=== PATIENT | female | born 1965 | race Caucasian/White ===

== ENCOUNTER → 2016-10-05 | Outpatient (CLI) | payer OTHER, BC | END | disposition home or self-care (01) | LOC: GMAB 10:51 | PROVIDERS: ATTEND Family Medicine | DX: N39.0 Urinary tract infection, site not specified (principal) ==

== ENCOUNTER → 2017-05-04 | Outpatient (CLI) | payer OTHER, BC | END | disposition home or self-care (01) | LOC: GMAB 10:41 | PROVIDERS: ATTEND Family Medicine | DX: Z00.01 Encounter for general adult medical examination with abnormal findings (principal) ==

== ENCOUNTER → 2018-09-06 | Outpatient (CLI) | payer OTHER, BC | LOC: LAB.O 18:05 | PROVIDERS: ATTEND Nurse Practitioner Family | DX: I10 Essential (primary) hypertension (principal) ==

== ENCOUNTER 2019-08-01 20:09 | Emergency (ER) | payer OTHER, BC ==
--- NOTE | 2019-08-01 20:44 | ED.PDOC ---
History of Present Illness - General Chief Complaint: Abdominal Pain Stated Complaint: abd cramping x3 hrs Time Seen by Provider: 08/01/19 20:27 Information Source: patient, family Exam Limitations: no limitations - History of Present Illness Initial Comments: 54 yo F with PMH sig for chronic constipation on linzess and bentyl daily who presents for diffuse abd pain described as cramping onset this evening, worsening since, severe, constant, no radiation. Similar pain in past with diverticulitis. Last bowel movement this morning. Denies f/c, cough, congestion, CP, SOB, n/v/d, urinary sx. Review of Systems - Review of Systems Constitutional: Denies: chills, fever EENTM: States: no symptoms reported Respiratory: Denies: cough, short of breath Cardiology: Denies: chest pain, palpitations Gastrointestinal/Abdominal: States: abdominal pain, constipation. Denies: diarrhea, nausea, vomiting Genitourinary: Denies: dysuria, frequency, hematuria Musculoskeletal: Denies: back pain, neck pain Skin: Denies: lesions, rash Neurological: Denies: headache, numbness, weakness Past Medical History (General) - Patient Medical History Hx Seizures: No Hx Stroke: No Hx Dementia: No Hx Asthma: Yes - seasonal: asthma Hx of COPD: No Hx Cardiac Disorders: Yes - mitral valve prolapse Hx Congestive Heart Failure: No Hx Pacemaker: No Hx Hypertension: Yes Hx Thyroid Disease: No Hx Diabetes: No Hx Gastroesophageal Reflux: No Hx Renal Disease: No Hx Cancer: Yes - breast Hx of HIV: No Hx Hepatitis C: No Hx MRSA: No - Vaccination History Hx Tetanus, Diphtheria Vaccination: No Hx Influenza Vaccination: Yes Hx Pneumococcal Vaccination: No - Social History Hx Tobacco Use: No Hx Alcohol Use: No Hx Substance Use: No Hx Substance Use Treatment: No Hx Depression: No Hx Physical Abuse: No Hx Emotional Abuse: No Hx Suspected Abuse: No - Female History Patient : No Family Medical History - Family History Mother Living Status: Still Living Hx Family Cancer: Yes - breast Physical Exam - Physical Exam General Appearance: Alert, No apparent distress, Well Developed, Well Nourished, Other - Appears in pain Eyes, Ears, Nose, Throat Exam: normal ENT inspection Neck: full range of motion, supple Respiratory: lungs clear, normal breath sounds, no respiratory distress, no accessory muscle use Cardiovascular/Chest: normal peripheral pulses, regular rate, rhythm, no edema, no gallop, no JVD, no murmur Peripheral Pulses: No deficit Gastrointestinal/Abdominal: normal bowel sounds, soft, no organomegaly, no pulsatile mass, tenderness - diffuse Back Exam: no CVA tenderness Extremity: normal range of motion, no pedal edema Neurologic: no motor/sensory deficits, alert, normal mood/affect, other - grossly intact Skin Exam: normal color, warm/dry Progress - Progress Progress: I have explained and reviewed all results with the pt. Pt is feeling improved, comfortable with d/c home. I explained that emergent conditions may arise and to return to the ER for new, worsening, or any persistent conditions. I've explained the importance of f/u for recheck. All questions and concerns addressed at this time. Pt understands and agrees with plan. Pt well appearing, NAD, is stable for discharge. Radha Bishop MD Emergency Medicine Physician Billing Number [id number] - Results/Orders Results/Orders: 08/01/19 20:43 Hold Metformin x 48Hrs [id number] Laboratory Results - last 24 hr 08/01/19 08/01/19 08/01/19 20:39 20:39 20:39 WBC 5.1 RBC 4.36 Hgb 13.5 Hct 40.1 MCV 92.0 MCH 31.0 MCHC 33.7 RDW 12.7 Plt Count 226 MPV 8.2 Absolute Neuts (auto) 3.30 Absolute Lymphs (auto) 1.30 Absolute Monos (auto) 0.40 Absolute Eos (auto) 0.10 Absolute Basos (auto) 0.00 Neutrophils % 63.9 Lymphocytes % 25.9 Monocytes % 7.8 Eosinophils % 1.5 Basophils % 0.9 Sodium 134 L Potassium 3.3 L Chloride 99 L Carbon Dioxide 26 Anion Gap 12.3 BUN 13 Creatinine 0.73 BUN/Creatinine Ratio 17.8 Random Glucose 123 H Serum Osmolality 269.7 L Calcium 9.5 Total Bilirubin 0.6 AST 28 ALT 22 Alkaline Phosphatase 64 Serum Total Protein 6.8 Albumin 4.4 Globulin 2.4 Albumin/Globulin Ratio 1.8 Lipase 39 Urine Color Urine Appearance Urine pH Ur Specific [place] Urine Protein Urine Glucose (UA) Urine Ketones Urine Blood Urine Nitrite Urine Bilirubin Urine Urobilinogen Ur Leukocyte Esterase Urine RBC Urine WBC Ur Epithelial Cells Urine Bacteria 08/01/19 20:40 WBC RBC Hgb Hct MCV MCH MCHC RDW Plt Count MPV Absolute Neuts (auto) Absolute Lymphs (auto) Absolute Monos (auto) Absolute Eos (auto) Absolute Basos (auto) Neutrophils % Lymphocytes % Monocytes % Eosinophils % Basophils % Sodium Potassium Chloride Carbon Dioxide Anion Gap BUN Creatinine BUN/Creatinine Ratio Random Glucose Serum Osmolality Calcium Total Bilirubin AST ALT Alkaline Phosphatase Serum Total Protein Albumin Globulin Albumin/Globulin Ratio Lipase Urine Color Yellow Urine Appearance Clear Urine pH 7.5 Ur Specific [place] 1.020 Urine Protein Negative Urine Glucose (UA) Negative Urine Ketones Negative Urine Blood Trace-intact H Urine Nitrite Negative Urine Bilirubin Negative Urine Urobilinogen 0.2 Ur Leukocyte Esterase Negative Urine RBC 0-1 Urine WBC 0 Ur Epithelial Cells 0-[address] abd/pelvis: EXAM DESCRIPTION: Abdomen/Pelvis w/Contrast CLINICAL HISTORY: 54 years Female pain COMPARISON: February 21, 2016. TECHNIQUE: Images were obtained in axial, sagittal, and coronal planes. Intravenous contrast was administered. This exam was performed according to our departmental dose-optimization program which includes use of Automated Exposure Control, adjustment of the mA and/or kV according to patient size and/or use of iterative reconstruction technique. FINDINGS: No abnormality involving the liver, spleen, pancreas, gallbladder, or adrenal glands bilaterally. No obstructing renal calcifications bilaterally. No hydronephrosis bilaterally. Right renal cysts. Punctate nonobstructing calcifications left kidney. Unremarkable bladder. No dilatation abdominal aorta. No abnormality portal vein. No adenopathy or abnormal fluid collections seen. Appendix within normal limits. No bowel obstruction, perforation, or inflammation. No acute osseous abnormality. No abnormality lower lungs bilaterally. IMPRESSION: No acute intra-abdominal abnormality. Electronically signed by: Adelaida Mann MD 08/01/2019 9:25 PM PROJECT CONSTRUCTION MANAGER Vital Signs - 24 hr 08/01/19 08/01/19 08/01/19 20:33 21:43 22:00 Temperature 97.4 F L Pulse Rate [ 60 64 66 left] Respiratory 18 18 Rate Blood Pressure 189/106 162/87 159/79 [left] O2 Sat by Pulse 100 100 Oximetry 08/01/19 22:21 Temperature 97.4 F L Pulse Rate [ 66 left] Respiratory 18 Rate Blood Pressure 159/79 [left] O2 Sat by Pulse 100 Oximetry Departure - Departure Clinical Impression: Acute abdominal pain Time of Disposition: 22:09 Disposition: Discharge to Home or Self Care Health Concerns: condition: stable Departure Forms: ED Discharge - Pt. Copy, Patient Portal Self Enrollment Instructions: DI for Abdominal Pain-Adult Referrals: CHRISTOPHER QUARLES MD [Primary Care Provider] - 1-2 Days Home Medications: Ambulatory Orders Calcium 2,000 mg PO DAILY 04/29/14 RX: ALPRAZolam [Xanax] 0.5 mg PO TID 04/29/14 RX: Enalapril Maleate [Vasotec] 10 mg PO DAILY 04/29/14 Vitamin D 1 each PO DAILY 04/29/14 RX: Linaclotide [Linzess] 145 mcg PO DAILY PRN 02/22/16 Omeprazole Magnesium [Prilosec Otc] 20 mg PO QAM #30 tab 02/23/16 RX: Bifidobacterium Infantis [Align] 4 mg PO BID #60 cap 02/23/16 RX: Dicyclomine HCl [Bentyl] 10 mg PO TID #60 tab 02/23/16 RX: HYDROcodone 5MG/APAP 325MG [[place] 5/325] 1 ea PO Q4H PRN #0 tab 02/23/16 Additional Instructions: Follow up: [facility] As needed, if symptoms worsen
[2019-08-01 20:47] VITALS: TEMP 97.4; O2SAT 100
[2019-08-01] MEDS ORDERED: KETOROLAC TROMETHAMINE INJ 30 MG/ML VIAL IV ONE (21:01)
[2019-08-01] MEDS ORDERED: ONDANSETRON INJ 4 MG/2 ML VIAL IV ONE (21:15)
--- NOTE | 2019-08-01 21:26 | CT ---
EXAM DESCRIPTION: Abdomen/Pelvis w/Contrast CLINICAL HISTORY: 54 years Female pain COMPARISON: February 21, 2016. TECHNIQUE: Images were obtained in axial, sagittal, and coronal planes. Intravenous contrast was administered. This exam was performed according to our departmental dose-optimization program which includes use of Automated Exposure Control, adjustment of the mA and/or kV according to patient size and/or use of iterative reconstruction technique. FINDINGS: No abnormality involving the liver, spleen, pancreas, gallbladder, or adrenal glands bilaterally. No obstructing renal calcifications bilaterally. No hydronephrosis bilaterally. Right renal cysts. Punctate nonobstructing calcifications left kidney. Unremarkable bladder. No dilatation abdominal aorta. No abnormality portal vein. No adenopathy or abnormal fluid collections seen. Appendix within normal limits. No bowel obstruction, perforation, or inflammation. No acute osseous abnormality. No abnormality lower lungs bilaterally. IMPRESSION: No acute intra-abdominal abnormality. Electronically signed by: Adelaida Mann MD 08/01/2019 9:25 PM [employer]
[2019-08-01] MEDS ORDERED: PROMETHAZINE HCL 25 MG TAB PO ONE (21:52)
[2019-08-01] MEDS ORDERED: ACETAMINOPHEN W/COD #3 TAB 1 EA TAB PO ONE (21:52)
[2019-08-01 22:20] VITALS: BP 159/79
== END 2019-08-01 22:21 | disposition home or self-care (01) ==
LOC: ER 20:09
DX: R10.84 Generalized abdominal pain (principal); N20.0 Calculus of kidney; N28.1 Cyst of kidney, acquired; I34.1 Nonrheumatic mitral (valve) prolapse; I10 Essential (primary) hypertension; J45.909 Unspecified asthma, uncomplicated; Z85.3 Personal history of malignant neoplasm of breast; Z79.899 Other long term (current) drug therapy
CPT/HCPCS: 36415; 74177; 80053; 81001; 83690; 85025; J1885; J2405; Q0169

== ENCOUNTER 2019-08-03 12:57 | Inpatient (IN) | payer OTHER, BC ==
[2019-08-03] MEDS ORDERED: ONDANSETRON ODT 8 MG TAB SL ONE (13:18)
[2019-08-03] MEDS ORDERED: SODIUM CHLORIDE 0.9% 1000ML 1,000 ML IVS ONE ×2 (13:18→14:34)
[2019-08-03] MEDS ORDERED: ALUM & MAG HYDROX-SIMETHICONE 30 ML, LIDOCAINE VISCOUS 2% 15 ML PO ONE ×2 (13:18)
[2019-08-03] MEDS ORDERED: LIDOCAINE HCL 2% (MOUTH-THROAT) 15 ML UD ONE (13:28)
[2019-08-03] MEDS ORDERED: ALUM & MAG HYDROX-SIMETHICONE 30 ML UD ONE (13:29)
--- NOTE | 2019-08-03 13:44 | RAD ---
Procedure: XR ABDOMEN SUPINE AND ERECT WITH CHEST (ABD ACUTE SERIES) Exam Date: 08/03/2019 Ordering Provider: Robert Dalton Clinical Indication: abd pain, nv Comparison: 08/01/2019 CT abdomen pelvis Findings: Upright chest x-ray: Cardiomediastinal silhouette is unremarkable. Pulmonary vasculature is unremarkable. There is no consolidation or effusion. No pneumothorax. Flat and upright abdomen: Nondistended loops of bowel with air-fluid levels. There is no pneumoperitoneum. There are no suspicious calcifications. No acute osseous abnormalities. Impression: 1. Nondistended loops of small bowel with air-fluid levels may be related to enteritis, developing bowel obstruction not completely excluded. Electronically signed by: Jey Doherty MD 08/03/2019 1:43 PM PLANT MECHANIC
[2019-08-03] MEDS ORDERED: PROMETHAZINE HCL INJ 25 MG in SODIUM CHLORIDE 0.9% 50ML 50 ML IVPB ONE (14:34)
[2019-08-03] MEDS ORDERED: PROMETHAZINE HCL INJ 25 MG/ML VIAL ONE ×2 (14:36→20:06)
[2019-08-03] MEDS ORDERED: SODIUM CHLORIDE 0.9% 50ML 50 ML ONE ×2 (14:37→20:06)
--- NOTE | 2019-08-03 15:15 | CT ---
EXAM DESCRIPTION: Abdoment/Pelvis w/o Contrast CLINICAL HISTORY: 54 years Female, worsening abd pain, nv, leukocytosis COMPARISON: 01 August 2019 TECHNIQUE: Transaxial images were obtained without intravenous or oral contrast media. Sagittal and coronal reconstruction was performed.This exam was performed according to our departmental dose-optimization program, which includes automated exposure control, adjustment of the mA and/or kV according to patient size and/or use of iterative reconstruction technique. FINDINGS: The lung bases are clear. The liver and spleen are unremarkable. No biliary ductal dilatation is observed. No adrenal masses are detected. The pancreas is normal in appearance. Imaging of the right kidney reveals no evidence of hydronephrosis mass cyst or calcification. Imaging of the left kidney reveals 3 small stones the largest of which measures 3.9 mm in diameter. No hydronephrosis or mass is detected. Marked distention of the stomach and proximal small bowel is observed. The appearance is that of a small bowel obstruction. Minimal diverticulosis of the colon is observed without evidence of diverticulitis. Degenerative changes are observed in the lower lumbar spine. A bilateral L5 spondylolysis is observed with grade 1 spondylolisthesis. Patient is post hysterectomy. IMPRESSION: 1. An abnormal small bowel pattern is observed consistent with small bowel obstruction. 2. Small nonobstructing left renal calculi are observed. 3. Uncomplicated diverticulosis of the colon. 4. Bilateral L5 spondylolysis with grade 1 spondylolisthesis. Electronically signed by: Abhay Mcdaniel MD 08/03/2019 3:14 PM STEREOTYPE MOLDER
[2019-08-03] MEDS ORDERED: PIPERACILLIN/TAZOBACTAM 3.375 GM in SODIUM CHLORIDE 0.9% 100ML 100 ML IVPB ONE (15:48)
--- NOTE | 2019-08-03 16:14 | ED.PDOC ---
History of Present Illness - General Chief Complaint: Abdominal Pain Stated Complaint: abd pain with n/v Time Seen by Provider: 08/03/19 13:07 Source: patient Exam Limitations: no limitations - History of Present Illness Initial Comments: the patient is a 54-year-old female presenting to the emergency room secondary to nausea vomiting abdominal pain for the last 24-36 hours. She was actually seen here in the emergency room on the for some abdominal pain but was not having any vomiting at that time. A rather extensive workup including labs and CT scan were done at that time that were grossly normal. The patient presents today secondary to the vomiting and increasing pain. No history of any bowel obstruction. She does have a history of significant constipation and irritable bowel. She has apparently seen gastroenterology in the [facility] and had a significant workup recently not showing any other definitive pathology. No fever. No chest pain. She does have a history of breast cancer that is apparently resolved. The patient is pleasant and cooperative. Diffuse abdominal discomfort palpation and mild to moderate distention. No guarding. N o real point tenderness. Timing/Duration: 24 hours Severity: moderate Improving Factors: nothing Worsening Factors: eating Associated Symptoms: loss of appetite, malaise, nausea/vomiting Allergies/Adverse Reactions: Allergies NO KNOWN ALLERGY Allergy (Verified 08/03/19 13:24) Home Medications: Ambulatory Orders ALPRAZolam [Xanax] 0.5 mg PO TID 04/29/14 Calcium 2,000 mg PO DAILY 04/29/14 Enalapril Maleate [Vasotec] 10 mg PO DAILY 04/29/14 Vitamin D 1 each PO DAILY 04/29/14 Linaclotide [Linzess] 145 mcg PO DAILY PRN 02/22/16 Bifidobacterium Infantis [Align] 4 mg PO BID #60 cap 02/23/16 Dicyclomine HCl [Bentyl] 10 mg PO TID #60 tab 02/23/16 HYDROcodone 5MG/APAP 325MG [[place] 5/325] 1 ea PO Q4H PRN #0 tab 02/23/16 Omeprazole Magnesium [Prilosec Otc] 20 mg PO QAM #30 tab 02/23/16 Review of Systems - Review of Systems Constitutional: States: malaise, weakness - generalized EENTM: States: no symptoms reported Respiratory: States: no symptoms reported Cardiology: States: no symptoms reported Gastrointestinal/Abdominal: States: see HPI Genitourinary: States: no symptoms reported Musculoskeletal: States: other - increased muscle cramps Skin: States: no symptoms reported Neurological: States: no symptoms reported Endocrine: States: no symptoms reported All other Systems: No Change from Baseline Past Medical History (General) - Patient Medical History Hx Seizures: No Hx Stroke: No Hx Dementia: No Hx Asthma: Yes - seasonal: asthma Hx of COPD: No Hx Cardiac Disorders: Yes - mitral valve prolapse Hx Congestive Heart Failure: No Hx Pacemaker: No Hx Hypertension: Yes Hx Thyroid Disease: No Hx Diabetes: No Hx Gastroesophageal Reflux: No Hx Renal Disease: No Hx Cancer: Yes - breast left Hx of HIV: No Hx Hepatitis C: No Hx MRSA: No Surgical History: Hysterectomy - Vaccination History Hx Tetanus, Diphtheria Vaccination: Yes Hx Influenza Vaccination: Yes Hx Pneumococcal Vaccination: No Immunizations Up to Date: Yes - Social History Hx Tobacco Use: No Hx Alcohol Use: Yes - occ Hx Substance Use: No Hx Substance Use Treatment: No Hx Depression: No Hx Physical Abuse: No Hx Emotional Abuse: No Hx Suspected Abuse: No - Female History Patient is a Female of Child Bearing Age (10 -59 yrs old): No Patient : No Family Medical History - Family History Mother Living Status: Still Living Hx Family Cancer: Yes - breast Physical Exam - Physical Exam General Appearance: Alert, No apparent distress Eye Exam: bilateral normal Ears, Nose, Throat: hearing grossly normal, normal pharynx Neck: full range of motion, supple Respiratory: lungs clear, normal breath sounds, no respiratory distress, no accessory muscle use Cardiovascular/Chest: normal peripheral pulses, regular rate, rhythm, no edema Peripheral Pulses: radial,right: 2+, radial,left: 2+, dorsalis pedis,right: 2+, dorsalis pedis,left: 2+ Gastrointestinal/Abdominal: other - see history of present illness Rectal Exam: deferred Back Exam: no CVA tenderness, no vertebral tenderness Extremity: normal range of motion, non-tender, normal inspection, no pedal edema, normal capillary refill 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 NG tube has been placed and 1200 cc has already been obtained. The patient is being given a of Zosyn primarily prophylactically. The patient does have marked dehydration and will probably require 5-6 L of IV fluids. She is receiving her second liter of IV fluids curr ently and we will plan on adding some potassium to her IV fluids after this. Dr. Hall, general surgery has been contacted and will evaluate the patient later. she is feeling somewhat better simply with NG tube decompression. The patient does have numerous laboratory abnormalities that I believe are primarily due to dehydration. These will need to be followed to make sure that they correct accordingly with rehydration. admit for continued care. - Results/Orders Results/Orders: acute abdominal series shows some fluid-filled loops of bowel CT scan of abdomen and pelvis without contrast shows what appears to be a small bowel obstruction. No definitive other acute pathology. See report for details. Laboratory Tests 08/03/19 08/03/19 08/03/19 13:42 13:42 13:42 WBC 15.5 H D RBC 5.81 H D Hgb 17.9 H D Hct 53.4 H* D MCV 92.0 MCH 30.9 MCHC 33.6 RDW 13.2 Plt Count 353 MPV 8.9 Absolute Neuts (auto) 13.90 H Absolute Lymphs (auto) 0.90 L Absolute Monos (auto) 0.70 Absolute Eos (auto) 0.00 Absolute Basos (auto) 0.00 Neutrophils % 89.5 H Lymphocytes % 5.5 L Monocytes % 4.7 Eosinophils % 0.0 L Basophils % 0.3 D-Dimer, Quantitative Sodium 125 L Potassium 3.8 Chloride 81 L Carbon Dioxide 25 Anion Gap 22.8 H BUN 42 H D Creatinine 1.47 H D BUN/Creatinine Ratio 28.6 H Random Glucose 137 H Serum Osmolality 264.1 L Lactic Acid 3.9 H* Calcium 10.3 H Magnesium 2.4 Total Bilirubin 1.1 H D AST 70 H D ALT 24 Alkaline Phosphatase 80 D Creatine Kinase 673 H* CK-MB (CK-2) 24.9 H* CK-MB (CK-2) % 3.70 Troponin I 0.20 H* Serum Total Protein 9.0 H D Albumin 5.4 Globulin 3.6 H Albumin/Globulin Ratio 1.5 Amylase 70 Lipase 53 H D TSH 4.97 Urine Color Urine Appearance Urine pH Ur Specific [place] Urine Protein Urine Glucose (UA) Urine Ketones Urine Blood Urine Nitrite Urine Bilirubin Urine Urobilinogen Ur Leukocyte Esterase Urine RBC Urine WBC Ur Epithelial Cells Urine Bacteria Urine Mucus 08/03/19 08/03/19 13:42 14:20 WBC RBC Hgb Hct MCV MCH MCHC RDW Plt Count MPV Absolute Neuts (auto) Absolute Lymphs (auto) Absolute Monos (auto) Absolute Eos (auto) Absolute Basos (auto) Neutrophils % Lymphocytes % Monocytes % Eosinophils % Basophils % D-Dimer, Quantitative 0.19 Sodium Potassium Chloride Carbon Dioxide Anion Gap BUN Creatinine BUN/Creatinine Ratio Random Glucose Serum Osmolality Lactic Acid Calcium Magnesium Total Bilirubin AST ALT Alkaline Phosphatase Creatine Kinase CK-MB (CK-2) CK-MB (CK-2) % Troponin I Serum Total Protein Albumin Globulin Albumin/Globulin Ratio Amylase Lipase TSH Urine Color Yellow Urine Appearance Clear Urine pH 5.5 Ur Specific [place] 1.025 Urine Protein 30 Urine Glucose (UA) Negative Urine Ketones Negative Urine Blood Trace-lysed H Urine Nitrite Negative Urine Bilirubin Negative Urine Urobilinogen 0.2 Ur Leukocyte Esterase Negative Urine RBC 0-1 Urine WBC 0 Ur Epithelial Cells 5-10 Urine Bacteria 0 Urine Mucus Small Departure - Departure Clinical Impression: Small bowel obstruction, Severe dehydration Acute renal failure Qualifiers: Acute renal failure type: unspecified Qualified Code(s): N17.9 - Acute kidney failure, unspecified Disposition: Admit Patient Condition: Serious Departure Forms: ED Discharge - Pt. Copy, Patient Portal Self Enrollment Instructions: DI for Abdominal Pain-Adult Referrals: CHRISTOPHER QUARLES MD [Primary Care Provider] - 1-2 Weeks Home Medications: Ambulatory Orders ALPRAZolam [Xanax] 0.5 mg PO TID 04/29/14 Calcium 2,000 mg PO DAILY 04/29/14 Enalapril Maleate [Vasotec] 10 mg PO DAILY 04/29/14 Vitamin D 1 each PO DAILY 04/29/14 Linaclotide [Linzess] 145 mcg PO DAILY PRN 02/22/16 Bifidobacterium Infantis [Align] 4 mg PO BID #60 cap 02/23/16 Dicyclomine HCl [Bentyl] 10 mg PO TID #60 tab 02/23/16 HYDROcodone 5MG/APAP 325MG [[place] 5/325] 1 ea PO Q4H PRN #0 tab 02/23/16 Omeprazole Magnesium [Prilosec Otc] 20 mg PO QAM #30 tab 02/23/16 Decision To Admit - Decistion To Admit Decision to Admit Reason: Medical Nature Decision to Admit Date: 08/03/19 Decision to Admit Time: 16:32
[2019-08-03] MEDS ORDERED: KCL 20MEQ/D5 1/2NS 1,000 ML IVS PRN (16:56)
--- NOTE | 2019-08-03 16:56 | HP ---
SUPERVISING PHYSICIAN: Prabhakar Childress M.D. CHIEF COMPLAINT: Abdominal pain with nausea and vomiting. HISTORY OF PRESENT ILLNESS: This is a 54 year-old female patient who came to the Emergency Room secondary to nausea and vomiting with abdominal pain for 24 to 36 hours. She was actually seen in the Emergency Room here on the with some abdominal pain but was not having any vomiting at that time. She had an extensive workup including labs and CT that were unremarkable. She presented back to the Emergency Room today secondary to increasing abdominal pain as well as nausea and vomiting. She does not have any history of bowel obstruction. She does have a history of significant constipation. She has seen a medical stenographer in the past, but showed no definitive pathology. She has a past history of breast cancer with a left mastectomy with no recurring issues. Initially in the Emergency Room her vital signs were temperature 96.6, heart rate 83, blood pressure 154/106, respiratory rate 20, O2 saturation 99%. Lab was done that showed a WBC of 15,500 with hemoglobin 17.9, hematocrit 53.4. D- dimer was negative at 0.19. Sodium was low at 125 with potassium 3.8, chloride 81, BUN 42, creatinine 1.47. Blood glucose was 137 with serum osmolality of 264.1, lactic acid 3.9, calcium 10.3. Total bilirubin was 1.1 with AST of 70, creatinine kinase 673, CK-MB 24.9. Troponin was elevated at 0.2 but she had no chest pain or EKG changes. Urinalysis was unremarkable. Blood cultures were drawn. Influenza A and B via PCR were both negative. Abdominal x-ray showed nondistended loops of small bowel with air-fluid levels, may be related to enteritis. Developing bowel obstruction not completely excluded. Abdomen and pelvis CT shows: 1. Abnormal small bowel pattern is observed consistent with small bowel obstruction. 2. Small nonobstructing left renal calculi are observed. 3. Uncomplicated diverticulosis of the colon. 4. Bilateral L5 spondylosis with grade 1 spondylolisthesis. She was given some Zosyn and several liters of fluids in the Emergency Room as well as some Promethazine for her nausea. Dr. Hall was consulted by the Emergency Room physician and he agreed for consultation on her admission. I was called for hospital admission. PAST MEDICAL HISTORY: 1. Seasonal allergies. 2. Migraine headaches. 3. Hyperlipidemia. 4. Hypertension. 5. Palpitations. 6. Cervical disc disease. 7. Left breast cancer that has resolved. PAST SURGICAL HISTORY: 1. section. 2. Hysterectomy. 3. Hernia repair in 1970. 4. Left mastectomy. OUTPATIENT MEDICATIONS: 1. Alprazolam. 2. Calcium. 3. Dicyclomine. 4. Enalapril. 5. Linzess. 6. Vitamin D. ALLERGIES: NO KNOWN DRUG ALLERGIES. FAMILY HISTORY: Noncontributory. SOCIAL HISTORY: She is . She has 2 children. She is employed at [employer]. She denies any smoking or illicit drug use. She does drink alcohol on a social basis. REVIEW OF SYSTEMS: GENERAL: Positive for fatigue. Negative for fever or weight changes. HEENT: Negative for sinus symptoms, ear pain, vision changes or sore throat. RESPIRATORY: Negative for wheezing, coughing or shortness of breath. CARDIAC: Negative for chest pain, palpitations or tachycardia. GASTROINTESTINAL: As per History of Present Illness. GENITOURINARY: Negative for hematuria, dysuria or polyuria. MUSCULOSKELETAL: Positive for muscle cramping. Negative for arthralgias or myalgias. SKIN: Negative for lesions or rashes. NEUROLOGIC: Negative for headache, dizziness or seizures. PHYSICAL EXAMINATION: VITAL SIGNS: Temperature 97.8, heart rate 90, blood pressure 155/90, respiratory rate 15, O2 saturation 96% on room air. GENERAL: This is a 54 year-old female patient lying in her hospital bed. She looks to be moderately ill. HEENT: Normocephalic, atraumatic. Pupils are equal and reactive. Oropharynx is clear. Oral mucous membranes are very dry. NECK: Supple without mass. RESPIRATORY: Essentially clear to auscultation bilaterally. CHEST: There is equal rise and fall of the chest with inspiration and expiration. CARDIOVASCULAR: Regular rate and rhythm. GASTROINTESTINAL: Abdomen is soft, nondistended. It is diffusely tender in all four quadrants, especially in the left upper and right upper quadrants. There is no rebound tenderness or guarding. Bowel sounds are positive. EXTREMITIES: No cyanosis, clubbing or edema. SKIN: Warm and dry, although she has poor skin turgor. NEUROLOGIC: Awake, alert and oriented times three. Cranial nerves II-XII are grossly intact as tested. LABORATORY: Labs and films are as per the History of Present Illness. ASSESSMENT: 1. Small bowel obstruction. 2. Sudden inflammatory response syndrome secondary to possible enteritis. She has admitting WBCs of 15,500 and elevated lactic acid. 3. Dehydration secondary to nausea and vomiting as well as #1. 4. Hypertension. 5. Chronic cervical neck pain. 6. Hyperlipidemia. 7. History of breast cancer with left mastectomy. PLAN: The patient has been admitted to the hospital. She will continue on her Zosyn as ordered in the Emergency Room. Will give her fluids overnight. Dr. Hall has been consulted and her GI orders will defer to him. She will be on bowel rest. She has antiemetics for nausea. She is also on a proton pump inhibitor for ulcer prophylaxis as well as Lovenox for deep venous thrombosis prophylaxis. At this point, she has not required any pain medications. Will follow that as needed. Routine lab has been ordered for in the morning as well as an abdominal x-ray. She will have incentive spirometry. Will follow her cultures as they become available. Will continue to monitor closely and follow as needed. [facility][id number] [facility]
[2019-08-03] MEDS ORDERED: PIPERACILLIN/TAZOBACTAM 3.375 GM VIAL IVPB ONE ×2 (17:09→19:05)
[2019-08-03] MEDS ORDERED: SODIUM CHLORIDE 0.9% 100ML 100 ML IVPB ONE ×2 (17:10→19:05)
[2019-08-03] MEDS: PANTOPRAZOLE SODIUM IV 40 MG VIAL IV SCH (17:15)
[2019-08-03] MEDS ORDERED: SODIUM CHLORIDE 0.9% (FLUSH) 10 ML SYG IV PRN (17:24)
[2019-08-03] MEDS: IV SET AND CAP CHANGE INJ INJ SCH (18:34)
[2019-08-03] MEDS: SODIUM CHLORIDE 0.9% (FLUSH) 10 ML SYG IV SCH (20:01)
[2019-08-03] MEDS: ENOXAPARIN SODIUM 40 MG/0.4 ML SYG SUBCU SCH (20:01)
[2019-08-03] MEDS: PROMETHAZINE HCL INJ 25 MG in SODIUM CHLORIDE 0.9% 50ML 50 ML IVPB PRN (20:10)
[2019-08-03] MEDS: KCL 20MEQ/D5NS 1,000 ML IVS PRN (20:29)
[2019-08-03] MEDS ORDERED: PHENOL THROAT SPRAY 180 ML BTTL MT PRN (21:19)
--- NOTE | 2019-08-03 21:21 | CONS ---
DATE OF CONSULTATION: 08/03/19 HISTORY OF PRESENT ILLNESS: The patient is a 54 year-old female who presented to the Emergency Room today for 24 to 36 hours of vomiting and abdominal pain. She was seen in the Emergency Room 2 days ago with abdominal pain but had no vomiting. CT scan at that time was unremarkable. She has no history of blood per rectum, melenic stools or bloody vomitus. Her vomitus has been bile colored. There is no previous history of bowel obstruction. She does have irritable bowel/constipation and takes Linzess for that. She had her last colonoscopy approximately 2 years ago and was said to be unremarkable. She did have a hospitalization 3 years ago for abdominal pain and etiology was not resolved at that time. PAST MEDICAL HISTORY: 1. Carcinoma of the breast. 2. Mitral valve prolapse. 3. Asthma. PAST SURGICAL HISTORY: 1. Hysterectomy with oophorectomy. 2. Surgical treatment for cancer of the breast. CURRENT MEDICATIONS: 1. Alprazolam. 2. Calcium. 3 Vasotec. 4. Vitamin D. 5. Linzess. 6. Align. 7. Bentyl. 8. Hydrocodone. 9. Prilosec. ALLERGIES: NO KNOWN DRUG ALLERGIES. FAMILY HISTORY: Positive for breast cancer. SOCIAL HISTORY: The patient is the mother of 2. She does not use tobacco and uses alcohol rarely. PHYSICAL EXAMINATION: VITAL SIGNS: Afebrile and normotensive. GENERAL: The patient is awake, alert, cooperative and in mild to moderate distress. HEENT: Sclera are nonicteric. Mucous membranes are dry. She has a nasogastric tube in the left nostril with bilious material within it. NECK: Without adenopathy. BACK: Without CVA tenderness. CHEST: She has equal breath sounds bilaterally. ABDOMEN: Soft, diffusely tender without masses. Bowel sounds are present but decreased. PELVIC AND RECTAL: Examinations are deferred. EXTREMITIES: Without clubbing, cyanosis or edema. LABORATORY: White count 15,000, hemoglobin 17.9, platelet count 353,000, 89% neutrophils. Sodium 125, potassium 3.8, BUN 42, creatinine 1.47, lactic acid 3.9. Total bilirubin 1.1, AST 70, alkaline phosphatase 80, CK 693, CK-MB 24.9, troponin 0.20. Lipase 53. Urinalysis is pending. D-dimer is 0.19. Urinalysis now is noted to be specific gravity of 1.025, otherwise clear. Small amount of urobilinogen and epithelial cells. CT scan reveals dilated loops of small bowel with no transition point. There is minimal stool identified. There is no free air and no free fluid identified. IMPRESSION: 1. Small bowel obstruction of uncertain etiology. PLAN: Nasogastric suction and rehydration. I believe most likely that the leukocytosis is from vomiting and the dehydration. I will follow this patient with the hospitalist service. #[id number] [facility]
[2019-08-03] MEDS: HYDROmorphone HCL INJ 2 MG/ML VIAL IV PRN (21:30)
[2019-08-03] MEDS: PIPERACILLIN/TAZOBACTAM 3.375 GM in SODIUM CHLORIDE 0.9% 100ML 100 ML IVPB SCH (22:17)
[2019-08-04] MEDS: HYDROmorphone HCL INJ 2 MG/ML VIAL IV PRN ×3 (02:27→18:04)
[2019-08-04] MEDS: KCL 20MEQ/D5NS 1,000 ML IVS PRN (03:31)
[2019-08-04] MEDS ORDERED: PIPERACILLIN/TAZOBACTAM 3.375 GM VIAL IVPB ONE ×4 (03:51→19:46)
[2019-08-04] MEDS ORDERED: SODIUM CHLORIDE 0.9% 100ML 100 ML IVPB ONE ×4 (03:52→19:46)
[2019-08-04] MEDS: PIPERACILLIN/TAZOBACTAM 3.375 GM in SODIUM CHLORIDE 0.9% 100ML 100 ML IVPB SCH ×4 (03:59→22:34)
--- NOTE | 2019-08-04 06:50 | RAD ---
EXAM: XR Abdomen, 2 Views CLINICAL HISTORY: The patient is 54 years old and is Female; sbo TECHNIQUE: Frontal view of the abdomen/pelvis with upright view of the abdomen. COMPARISON: Abdomen radiograph August 03, 2019. FINDINGS: INTRAPERITONEAL SPACE: No free air. GASTROINTESTINAL TRACT: Dilated air-filled small bowel loops are noted centrally within the abdomen. Several air-fluid levels are present. BONES/JOINTS: Unremarkable. TUBES, LINES AND DEVICES: Enteric tube is present with the tip in the gastric fundus. IMPRESSION: Findings suggest a small bowel obstruction. Electronically signed by: Blanquita Messer MD 08/04/2019 6:48 AM [facility]
[2019-08-04] MEDS: SODIUM CHLORIDE 0.9% (FLUSH) 10 ML SYG IV SCH ×2 (09:30→20:33)
[2019-08-04] MEDS: KCL 20MEQ/D5 1/2NS 1,000 ML IVS PRN ×2 (12:36→20:37)
[2019-08-04] MEDS: PANTOPRAZOLE SODIUM IV 40 MG VIAL IV SCH (17:21)
[2019-08-04] MEDS: ENOXAPARIN SODIUM 40 MG/0.4 ML SYG SUBCU SCH (20:32)
[2019-08-04] MEDS ORDERED: PROMETHAZINE HCL INJ 25 MG/ML VIAL ONE (23:45)
[2019-08-04] MEDS ORDERED: SODIUM CHLORIDE 0.9% 50ML 50 ML ONE (23:46)
[2019-08-05] MEDS: HYDROmorphone HCL INJ 2 MG/ML VIAL IV PRN ×2 (00:02→21:29)
[2019-08-05] MEDS ORDERED: SODIUM CHLORIDE 0.9% 100ML 100 ML IVPB ONE ×5 (03:28→19:57)
[2019-08-05] MEDS ORDERED: PIPERACILLIN/TAZOBACTAM 3.375 GM VIAL IVPB ONE ×5 (03:28→19:57)
[2019-08-05] MEDS: PIPERACILLIN/TAZOBACTAM 3.375 GM in SODIUM CHLORIDE 0.9% 100ML 100 ML IVPB SCH ×4 (03:52→21:32)
--- NOTE | 2019-08-05 08:08 | RAD ---
EXAM: XR Abdomen, 2 Views CLINICAL HISTORY: FU bowel obstruction TECHNIQUE: Frontal view of the abdomen/pelvis with upright view of the abdomen. COMPARISON: 08/04/2019. FINDINGS: Limitations: None. Intraperitoneal space: No free air. Gastrointestinal tract: There is stable small bowel distention and layering fluid. Bones/joints: Unremarkable. Tubes, lines and devices: Nasogastric tube terminates in the gastric body. IMPRESSION: Stable small bowel obstruction. Electronically signed by: Mahnaz Dunbar MD 08/05/2019 8:07 AM [facility]
[2019-08-05] MEDS: SODIUM CHLORIDE 0.9% (FLUSH) 10 ML SYG IV SCH ×2 (09:04→20:15)
[2019-08-05] MEDS ORDERED: PROMETHAZINE HCL INJ 25 MG/ML VIAL ONE (12:01)
[2019-08-05] MEDS ORDERED: SODIUM CHLORIDE 0.9% 50ML 50 ML ONE (12:01)
--- NOTE | 2019-08-05 12:04 | PN ---
DATE: 08/04/19 SUPERVISING PHYSICIAN: Prbahakar Childress MD SUBJECTIVE: The patient has been ambulating. She was given a soapsuds enema today and did not have a whole lot of results with it. She continues to have some abdominal pain but she says they are not quite as severe on admission. She does have an NG tube remaining in place with intermittent suction and clamping, seems to be tolerating this okay. She has not had any chest pain or shortness of breath. OBJECTIVE: VITAL SIGNS: Temperature 98.4, pulse 72, blood pressure 138/83, respirations 18, oxygen saturation 98% on room air. I&O: Negative balance of 796, weight down to 46.3 kg. She has had 1600 out of her NG tube. She has not yet had a bowel movement. GENERAL: While the patient still appears to be unwell but is in no obvious acute distress. She is alert. HEENT: NG tube remains in place with no complications. HEART: Regular rate and rhythm. ABDOMEN: Soft, nondistended with continued diffuse tenderness noted in the mid to left upper quadrant. No rebound tenderness, no point tenderness. No guarding. Positive bowel sounds. CHEST: Lungs clear to auscultation bilaterally. EXTREMITIES: Without edema. NEUROLOGIC: Alert and oriented x 3. LABORATORY: CBC now shows a normal white count at 10,000, hemoglobin 15.2, hematocrit 45.0. Platelet count to 251,000, differential does show a continued left shift. Chemistries show improved sodium of 134, normal potassium at 4.7, BUN 24, creatinine now normalized at 0.93. Glucose 139, lactic acid now normalized at 1.8. Liver functions all within normal limits. Troponin was not repeated, nor was the lipase. MICROBIOLOGY: Blood cultures remain negative at 24 hours. RADIOLOGY: Repeat abdominal x-ray this morning per radiology interpretation, still findings suggestive of small bowel obstruction. ASSESSMENT: 1. Small bowel obstruction With white count baseline levels and lactic acid normalized. 2. Sudden inflammatory response syndrome secondary to possible enteritis. She has admitting WBCs of 15,500 and elevated lactic acid, improving with NG tube placement and fluids. 3. Dehydration secondary to nausea and vomiting as well as #1. 4. Hypertension. 5. Chronic cervical neck pain. 6. Hyperlipidemia. 7. History of breast cancer with left mastectomy. PLAN: Will continue to follow the patient with Dr. Hall. Will continue with Zosyn today and discuss need for antibiotics with Dr. Hall, further assessment in the morning. She continues on bowel rest, antiemetics. She has been ambulating and is encouraged to do so. Will try a soapsuds enema x2 today and will repeat labs in the morning. Again, will defer further management to Dr. Hall and hopefully if she continues to improve medically we can discharge her over the weekend, however, if not she may actually require subsequent intervention and we will talk to Dr. Hall about that in the morning. Until we can transition him to outpatient management, we will continue to monitor and treat as needed. #[id number] [facility]
[2019-08-05] MEDS: PROMETHAZINE HCL INJ 25 MG in SODIUM CHLORIDE 0.9% 50ML 50 ML IVPB PRN ×3 (12:08)
[2019-08-05] MEDS: KCL 20MEQ/D5 1/2NS 1,000 ML IVS PRN ×2 (15:06→23:59)
[2019-08-05] MEDS: PANTOPRAZOLE SODIUM IV 40 MG VIAL IV SCH (17:32)
[2019-08-05] MEDS: ENOXAPARIN SODIUM 40 MG/0.4 ML SYG SUBCU SCH (20:15)
--- NOTE | 2019-08-05 22:12 | PN ---
DATE: 08/05/19 SUPERVISING PHYSICIAN: Prabhakar Childress M.D. SUBJECTIVE: The patient is still having abdominal pains. She notes that it is significantly decreased from yesterday. She had 2 enemas with minimal results overnight. She is still having quite a bit of output through her nasogastric tube between intermittent suction. She denied any chest pain and any nausea. OBJECTIVE: VITAL SIGNS: Afebrile with temperature 98.3, pulse 78, blood pressure 137/88, respirations 18, satting 98% on room air. I's and O's showing a negative balance of 1500. Weight is 46.4 kg. GENERAL: The patient appears to be in no acute distress, although she is ill- appearing. HEENT: Nasogastric tube remains in good place with no complications. HEART: Regular. ABDOMEN: Soft, nondistended but continued tenderness in the mid to left upper quadrant. No rebound. No point tenderness. No guarding. Bowel sounds are active. CHEST: Lung sounds are clear bilaterally. EXTREMITIES: Without any edema. NEUROLOGIC: She remains alert and oriented times three. LABORATORY: White count showing to be 6,500, hemoglobin 12.5, hematocrit 37.3, platelet count 200,000. Differential now shows to be without a left shift. Chemistries are showing normal electrolytes. BUN 12, creatinine 0.72, calcium 8.1. Blood sugar 109. Liver functions are showing to be within normal limits now. Albumin is at 3.2. MICROBIOLOGY: Blood cultures remain negative after 48 hours. RADIOLOGY: Abdominal x-ray per radiology interpretation shows stable small bowel obstruction. ASSESSMENT: 1. Small bowel obstruction. 2. Sudden inflammatory response syndrome secondary to possible enteritis. She has admitting WBCs of 15,500 and elevated lactic acid, improving with NG tube placement and fluids. 3. Dehydration, resolved and stable with IV fluids. 4. Hypertension. 5. Chronic cervical neck pain. 6. Hyperlipidemia. 7. History of breast cancer with left mastectomy. PLAN: Will continue to follow the patient along with Dr. Hlal. She is still on Zosyn, deep venous thrombosis prophylaxis and ambulation which she is doing multiple times throughout the day. She has had several soap suds enemas. Will try another one today. The plan would be that if she certainly can medically resolve this, will do so, but however if she continues to show resistant to medical treatment and conservative measures, certainly will consideration for a surgical procedure at Dr. Hall's recommendations. Until then will continue to monitor and treat as needed. #[id number] [facility]
[2019-08-06] MEDS ORDERED: PROMETHAZINE HCL INJ 25 MG/ML VIAL ONE ×3 (02:12→21:13)
[2019-08-06] MEDS ORDERED: SODIUM CHLORIDE 0.9% 50ML 50 ML ONE ×3 (02:13→21:13)
[2019-08-06] MEDS: PROMETHAZINE HCL INJ 25 MG in SODIUM CHLORIDE 0.9% 50ML 50 ML IVPB PRN ×3 (02:15→21:17)
[2019-08-06] MEDS: PIPERACILLIN/TAZOBACTAM 3.375 GM in SODIUM CHLORIDE 0.9% 100ML 100 ML IVPB SCH ×5 (04:04→21:50)
--- NOTE | 2019-08-06 06:36 | RAD ---
ABDOMEN, TWO VIEWS, XR. CLINICAL HISTORY: fu bowel obstruction COMPARISON: Abdomen 08/05/2019 TECHNIQUE: Supine and upright AP abdomen. FINDINGS: Feeding tube identified in the left abdomen in the region of the stomach . There is air noted throughout the bowel to the rectal region. There is mild gaseous dilatation of several central small bowel loops up to 3.2 cm. No obstruction evident. No free air. No pathologic calcification evident.. IMPRESSION: Mild small bowel ileus versus incomplete obstruction, without significant change. Electronically signed by: Christy Horn DO 08/06/2019 6:33 AM [facility]
[2019-08-06] MEDS ORDERED: SODIUM CHLORIDE 0.9% 100ML 100 ML IVPB ONE ×4 (07:11→19:38)
[2019-08-06] MEDS ORDERED: PIPERACILLIN/TAZOBACTAM 3.375 GM VIAL IVPB ONE ×4 (07:11→19:38)
[2019-08-06] MEDS ORDERED: MAGNESIUM HYDROXIDE 30 ML UD PO ONE ×2 (08:50→20:24)
[2019-08-06] MEDS: SODIUM CHLORIDE 0.9% (FLUSH) 10 ML SYG IV SCH ×2 (08:57→20:16)
[2019-08-06] MEDS: KCL 20MEQ/D5 1/2NS 1,000 ML IVS PRN (10:46)
[2019-08-06] MEDS ORDERED: ENALAPRIL MALEATE 10 MG PO SCH (13:45)
[2019-08-06] MEDS ORDERED: ENALAPRIL MALEATE 5 MG TAB ONE (13:48)
[2019-08-06] MEDS ORDERED: ENALAPRIL MALEATE 5 MG TAB PO ONE (14:00)
[2019-08-06] MEDS: PANTOPRAZOLE SODIUM IV 40 MG VIAL IV SCH (16:58)
[2019-08-06] MEDS: HYDROmorphone HCL INJ 2 MG/ML VIAL IV PRN (16:59)
[2019-08-06] MEDS: IV SET AND CAP CHANGE INJ INJ SCH (17:01)
[2019-08-06] MEDS: ENOXAPARIN SODIUM 40 MG/0.4 ML SYG SUBCU SCH (20:16)
--- NOTE | 2019-08-06 21:26 | PN ---
DATE: 08/06/19 SUPERVISING PHYSICIAN: Prabhakar Childress M.D. SUBJECTIVE: The patient notes that her abdominal pain is just very dull. She still has an nasogastric tube in place. She has been ambulating multiple times throughout the day. She has not had any other complaints. No nausea or vomiting or diarrhea. OBJECTIVE: VITAL SIGNS: T max temperature was 100.5, pulse 72, blood pressure 147/89, respirations 17, satting 100% on room air. GENERAL: The patient is resting comfortably, visiting with family. Nasogastric tube remains in place. She is alert. CHEST: Lungs were clear to auscultation. HEART: Regular rate and rhythm. ABDOMEN: Soft, nondistended with positive bowel sounds. Still with a little tenderness on palpation to the epigastric region. EXTREMITIES: Without any edema. NEUROLOGIC: She is alert and oriented times three. LABORATORY: No additional laboratory studies today as they have normalized. RADIOLOGY: Repeat abdominal x-ray this morning per radiology interpretation showed mid small bowel ileus versus incomplete obstruction without significant change. ASSESSMENT: 1. Small bowel obstruction. 2. Sudden inflammatory response syndrome secondary to possible enteritis. She has admitting WBCs of 15,500 and elevated lactic acid, improving with NG tube placement and fluids. 3. Dehydration, resolved and stable with IV fluids. 4. Hypertension. 5. Chronic cervical neck pain. 6. Hyperlipidemia. 7. History of breast cancer with left mastectomy. PLAN: Will continue to follow the patient along with Dr. Hall. The plan at this point, I believe, is to start her on some clear liquids, give her some Milk of Magnesia and hopefully be able to pull her nasogastric tube later today if she tolerates that regimen. The goal would be to discharge tomorrow with conservative treatment measures over the holidays and reassess and followup clinically for need for possible surgical intervention. She remains stable. Will continue to monitor and treat as needed with hopefully being able to discharge tomorrow. #[id number] [facility]
[2019-08-07] MEDS: PIPERACILLIN/TAZOBACTAM 3.375 GM in SODIUM CHLORIDE 0.9% 100ML 100 ML IVPB SCH ×2 (03:55→10:55)
[2019-08-07] MEDS: KCL 20MEQ/D5 1/2NS 1,000 ML IVS PRN (06:12)
[2019-08-07] MEDS ORDERED: SODIUM CHLORIDE 0.9% 100ML 100 ML IVPB ONE (06:53)
[2019-08-07] MEDS ORDERED: PIPERACILLIN/TAZOBACTAM 3.375 GM VIAL IVPB ONE (06:53)
[2019-08-07] MEDS ORDERED: ENALAPRIL MALEATE 5 MG TAB ONE (06:53)
[2019-08-07] MEDS: SODIUM CHLORIDE 0.9% (FLUSH) 10 ML SYG IV SCH (08:50)
[2019-08-07] MEDS ORDERED: ENALAPRIL MALEATE 5 MG TAB PO SCH (09:00)
[2019-08-07] MEDS ORDERED: NON-FORMULARY MEDICATION 1 EA MIS (Linaclotide [Linzess] 145 MCG) PO PRN (10:10)
[2019-08-07 14:09] VITALS: BP 132/92; TEMP 99; O2SAT 100
--- NOTE | 2019-08-15 09:45 | DS ---
SUPERVISING PHYSICIAN: James Velazco MD ADMISSION DIAGNOSIS: 1. Small bowel obstruction. 2. Sudden inflammatory response syndrome secondary to possible enteritis. She has admitting WBCs of 15,500 and elevated lactic acid. 3. Dehydration secondary to nausea and vomiting as well as #1. 4. Hypertension. 5. Chronic cervical neck pain. 6. Hyperlipidemia. 7. History of breast cancer with left mastectomy. DISCHARGE DIAGNOSIS: 1. Small bowel obstruction, resolved with the patient tolerating clear liquids. 2. Inflammatory response syndrome secondary to #1, resolved with fluids. 3. Dehydration, resolved and stable with IV fluids. 4. Hypertension. 5. Chronic cervical neck pain. 6. Hyperlipidemia. 7. History of breast cancer with left mastectomy. REASON FOR HOSPITALIZATION: This is a 54 year-old female patient who came to the Emergency Room secondary to nausea and vomiting with abdominal pain for 24 to 36 hours. She was actually seen in the Emergency Room here on the with some abdominal pain but was not having any vomiting at that time. She had an extensive workup including labs and CT that were unremarkable. She presented back to the Emergency Room today secondary to increasing abdominal pain as well as nausea and vomiting. She does not have any history of bowel obstruction. She does have a history of significant constipation. She has seen a [employer] in the past, but showed no definitive pathology. She has a past history of breast cancer with a left mastectomy with no recurring issues. Initially in the Emergency Room her vital signs were temperature 96.6, heart rate 83, blood pressure 154/106, respiratory rate 20, O2 saturation 99%. Lab was done that showed a WBC of 15,500 with hemoglobin 17.9, hematocrit 53.4. D- dimer was negative at 0.19. Sodium was low at 125 with potassium 3.8, chloride 81, BUN 42, creatinine 1.47. Blood glucose was 137 with serum osmolality of 264.1, lactic acid 3.9, calcium 10.3. Total bilirubin was 1.1 with AST of 70, creatinine kinase 673, CK-MB 24.9. Troponin was elevated at 0.2 but she had no chest pain or EKG changes. Urinalysis was unremarkable. Blood cultures were drawn. Influenza A and B via PCR were both negative. Abdominal x-ray showed nondistended loops of small bowel with air-fluid levels, may be related to enteritis. Developing bowel obstruction not completely excluded. MEDICAL CONSULTATION: Dr. Rafael, general surgeon. Please see his notes for details. LABORATORY: White count on admission was 15,500, hemoglobin 17.9, hematocrit 33.4 with a left shift. After treatment and prior to discharge and with fluids, her white count was down to 6.5, hemoglobin 12.5, hematocrit 37.3, platelet count 200 and differential had resolved. Coagulation studies showed a normal D- dimer. Chemistries on admission showed sodium 125, anion gap 22.8, BUN 42, creatinine 1.47. Lactic acid was 3.9 and normalized after fluids to 1.8. Calcium 10.3. Bilirubin initially 1.1, AST 70, creatinine 6.73, troponin 0.20. Lipase elevated at 53, amylase normal at 70. TSH normal at 4.97. After treatment and prior to discharge, electrolytes had normalized. BUN was down to 0.72. Liver functions had normalized. Urinary symptoms just showed a trace of lysed blood, otherwise within normal limits. MICROBIOLOGY: Blood cultures showed no growth at 5 days. Influenza A and B by PCR were negative. RADIOLOGY: She had an abdominal x-ray and abdominopelvic CT with abdominopelvic CT without contrast showing an abnormal small bowel pattern consistent with small bowel obstruction. Small, nonobstructing renal calculi observed. Uncomplicated diverticulosis of the colon. Bilateral L5 spondylosis with grade 1 spondylolisthesis. She had multiple abdominal x-rays with the last one being on 08/06/19 and per radiologic interpretation showed mid small bowel ileus versus obstruction without significant change. HOSPITAL COURSE: Ms. Li was admitted for small bowel obstruction with surgical consultation. She was placed on NG tube. She was put on NPO status, given pain medicine and fluids. Her labs had normalized. She was gradually able to advance to a clear liquid diet. She was no longer having significant pain and was having small bowel movements. It was felt she had clinically resolved well enough to continue with outpatient management. Therefore, she was discharged home per Dr. Hall's request. PLAN: She was to have followup with [employer] web developer and Dr. Childress within one to two weeks. She was to hold her Bentyl until she was seen in followup by the [employer] web developer. She was to take her Linzess as directed daily and advance her diet slowly as tolerated. She was to resume all other medications as instructed. She was encouraged to push fluids to prevent dehydration. She was told to return to the hospital should she have any need for reevaluation, symptoms or failing to improve or symptoms worsen. No prescriptions were provided on discharge. All other medications were resumed as instructed. CONDITION ON DISCHARGE: Stable and improved. DISPOSITION: The patient is discharged to care of family members. #[id number] [facility]
== END 2019-08-07 14:30 | disposition home or self-care (01) | DRG 389 ==
LOC: ER 12:57 → OBSVTOIN 16:55 → MS 16:55
PROVIDERS: ADMIT Nurse Practitioner Acute Care; ATTEND Nurse Practitioner Acute Care
DX: K56.609 Unspecified intestinal obstruction, unspecified as to partial versus complete obstruction (principal); N17.9 Acute kidney failure, unspecified; R65.10 Systemic inflammatory response syndrome (SIRS) of non-infectious origin without acute organ dysfunction; E86.0 Dehydration; J45.909 Unspecified asthma, uncomplicated; I10 Essential (primary) hypertension; I34.1 Nonrheumatic mitral (valve) prolapse; K52.9 Noninfective gastroenteritis and colitis, unspecified; D72.829 Elevated white blood cell count, unspecified; E78.5 Hyperlipidemia, unspecified; M50.30 Other cervical disc degeneration, unspecified cervical region; Z85.3 Personal history of malignant neoplasm of breast

== ENCOUNTER 2019-08-08 13:53 | Inpatient (IN) | payer OTHER, BC ==
[2019-08-08] MEDS ORDERED: MORPHINE SULFATE INJ 10 MG/ML VIAL IV ONE (14:44)
[2019-08-08] MEDS ORDERED: SODIUM CHLORIDE 0.9% 1000ML 1,000 ML IVS ONE (14:44)
[2019-08-08] MEDS ORDERED: ONDANSETRON INJ 4 MG/2 ML VIAL IV ONE (14:44)
--- NOTE | 2019-08-08 14:49 | ED.PDOC ---
History of Present Illness - General Chief Complaint: GI Problem Stated Complaint: abd pain Time Seen by Provider: 08/08/19 14:42 Additional Information: Patient is a 54-year-old female who presents to the ED with chief complaint of abdominal pain. Patient indicates she was just released from [facility] after a 4 day stay for partial small bowel obstruction treated conservatively with NG tube. She went home last night and indicates that her abdomen began to distend, she is having decreased bowel movements and she had a single episode of emesis. Patient denies fever and chills. Patient describes her pain as crampy and is 10 out of 10 in intensity. Before now patient had no previous history of bowel obstruction. Past surgical history is significant for . Patient indicates she has had very little by mouth intake since yesterday afternoon. Review of Systems - Review of Systems Constitutional: States: weakness. Denies: chills, fever EENTM: States: no symptoms reported Respiratory: Denies: cough, short of breath Cardiology: States: no symptoms reported. Denies: chest pain, palpitations Gastrointestinal/Abdominal: States: abdominal pain, nausea, vomiting. Denies: diarrhea Genitourinary: States: no symptoms reported. Denies: dysuria Musculoskeletal: States: no symptoms reported Skin: States: no symptoms reported Neurological: States: no symptoms reported Endocrine: States: no symptoms reported Hematologic/Lymphatic: States: no symptoms reported All other Systems: Reviewed and Negative Past Medical History (General) - Patient Medical History Hx Seizures: No Hx Stroke: No Hx Dementia: No Hx Asthma: No Hx of COPD: No Hx Cardiac Disorders: Yes - mitral valve prolapse Hx Congestive Heart Failure: No Hx Pacemaker: No Hx Hypertension: Yes Hx Thyroid Disease: No Hx Diabetes: No Hx Gastroesophageal Reflux: No Hx Renal Disease: No Hx Cancer: No Hx of HIV: No Hx Hepatitis C: No Hx MRSA: No - Vaccination History Hx Tetanus, Diphtheria Vaccination: Yes Hx Influenza Vaccination: Yes Hx Pneumococcal Vaccination: No - Social History Hx Tobacco Use: No Hx Alcohol Use: No Hx Substance Use: No Hx Substance Use Treatment: No Hx Depression: No Hx Physical Abuse: No Hx Emotional Abuse: No Hx Suspected Abuse: No - Female History Patient is a Female of Child Bearing Age (10 -59 yrs old): Yes Patient : No Family Medical History - Family History Mother Living Status: Still Living Hx Family Cancer: Yes - breast Physical Exam - Physical Exam General Appearance: Alert, Obvious distress, Ill Appearing, Well Developed Eyes, Ears, Nose, Throat Exam: normal ENT inspection, TMs normal, other - mucous membranes are dry Neck: non-tender, full range of motion Respiratory: chest non-tender, lungs clear, normal breath sounds, no respiratory distress, no accessory muscle use Cardiovascular/Chest: regular rate, rhythm, no edema Gastrointestinal/Abdominal: soft, no organomegaly, distended, guarding, tenderness Back Exam: normal inspection, no CVA tenderness Extremity: normal range of motion, non-tender, normal inspection, no pedal edema Neurologic: director chemistry II-XII nml as tested, no motor/sensory deficits, alert, normal mood/affect Skin Exam: normal color Progress - Progress Progress: 08/08/19 15:19 Differential diagnosis includes but is not limited to bowel obstruction, gastroenteritis, colitis, IBS 08/08/19 16:[address] again shows high-grade small bowel obstruction. Patient's labs are unremarkable including her WBC and renal function. I discussed case with Dr. Hall who requests that we replace an NG tube, 18 [place], and admitted under the hospitalist care. I discussed case with Dr. Almodovar who accepts patient for admission. Patient's vital signs are stable at this time and she is feeling slightly better status post IV analgesics. - Results/Orders Results/Orders: 08/08/19 14:42 IV:Start .ONCE 08/08/19 14:43 Hold Metformin x 48Hrs [id number] 08/08/19 16:30 NG [Tube(s):Nasogastric,Insertion] PRN Laboratory Results WBC 6.5 K/mm3 (4.8-10.8) 08/08/19 14:53 RBC 5.03 M/mm3 (4.20-5.40) 08/08/19 14:53 Hgb 15.8 gm/dL (12.0-16.0) 08/08/19 14:53 Hct 46.2 % (36.0-47.0) 08/08/19 14:53 MCV 91.9 fl (81.0-99.0) 08/08/19 14:53 MCH 31.3 pg (27.0-31.0) H 08/08/19 14:53 MCHC 34.1 g/dL (33.0-37.0) 08/08/19 14:53 RDW 12.6 % (11.5-14.5) 08/08/19 14:53 Plt Count 286 K/mm3 (130-400) 08/08/19 14:53 MPV 8.3 fl (7.40-10.4) 08/08/19 14:53 Absolute Neuts (auto) 5.00 K/uL (1.8-6.8) 08/08/19 14:53 Absolute Lymphs (auto) 0.90 K/uL (1.0-3.4) L 08/08/19 14:53 Absolute Monos (auto) 0.60 K/uL (0.2-0.8) 08/08/19 14:53 Absolute Eos (auto) 0.00 K/uL (0.0-0.4) 08/08/19 14:53 Absolute Basos (auto) 0.00 K/uL (0.0-0.1) 08/08/19 14:53 Neutrophils % 77.4 % (42.0-78.0) 08/08/19 14:53 Lymphocytes % 13.1 % (20.0-50.0) L 08/08/19 14:53 Monocytes % 8.6 % (2.0-9.0) 08/08/19 14:53 Eosinophils % 0.7 % (1.0-5.0) L 08/08/19 14:53 Basophils % 0.2 % (0.0-2.0) 08/08/19 14:53 Sodium 134 mmol/L (135-145) L 08/08/19 14:53 Potassium 4.6 mmol/L (3.6-5.0) 08/08/19 14:53 Chloride 94 mmol/L (101-111) L 08/08/19 14:53 Carbon Dioxide 27 mmol/L (21-31) 08/08/19 14:53 Anion Gap 17.6 (12-18) 08/08/19 14:53 BUN 8 mg/dL (7-18) 08/08/19 14:53 Creatinine 0.79 mg/dL (0.6-1.3) 08/08/19 14:53 BUN/Creatinine Ratio 10.1 (10-20) 08/08/19 14:53 Random Glucose 96 mg/dL (70-105) 08/08/19 14:53 Serum Osmolality 266.4 mOsm/L (275-295) L 08/08/19 14:53 Lactic Acid 1.5 mmol/L (0.5-2.2) 08/08/19 15:05 Calcium 10.3 mg/dL (8.4-10.2) H 08/08/19 14:53 Total Bilirubin 0.8 mg/dL (0.2-1.0) 08/08/19 14:53 AST 45 IU/L (10-42) H 08/08/19 14:53 ALT 33 IU/L (10-60) 08/08/19 14:53 Alkaline Phosphatase 57 IU/L (42-121) 08/08/19 14:53 Serum Total Protein 7.6 gm/dL (6.4-8.2) 08/08/19 14:53 Albumin 4.7 g/dl (3.2-5.5) 08/08/19 14:53 Globulin 2.9 gm/dL (2.3-3.5) 08/08/19 14:53 Albumin/Globulin Ratio 1.6 (1.1-1.9) 08/08/19 14:53 Lipase 51 U/L (22-51) 08/08/19 14:53 Urine Color Yellow (Yellow) 08/08/19 15:30 Urine Appearance Clear (Clear) 08/08/19 15:30 Urine pH 6.5 (4.5-7.8) 08/08/19 15:30 Ur Specific [place] <= 1.005 (1.005-1.030) 08/08/19 15:30 Urine Protein Negative mg/dL 08/08/19 15:30 Urine Glucose (UA) Negative mg/dL (Negative) 08/08/19 15:30 Urine Ketones 15 mg/dL (NEGATIVE) H 08/08/19 15:30 Urine Blood Trace-intact (Negative) H 08/08/19 15:30 Urine Nitrite Negative 08/08/19 15:30 Urine Bilirubin Negative (NEGATIVE) 08/08/19 15:30 Urine Urobilinogen 0.2 mg/dL (0.2-1.0) 08/08/19 15:30 Ur Leukocyte Esterase Negative (Negative) 08/08/19 15:30 Urine RBC 0 /hpf 08/08/19 15:30 Urine WBC 0-1 /hpf 08/08/19 15:30 Ur Epithelial Cells 0-1 /hpf 08/08/19 15:30 Urine Bacteria 0 08/08/19 15:30 Departure - Departure Clinical Impression: Small bowel obstruction Time of Disposition: 16:37 Disposition: Admit Patient Condition: Fair Home Medications: Ambulatory Orders ALPRAZolam [Xanax] 0.5 mg PO TID 04/29/14 Calcium 2,000 mg PO DAILY 04/29/14 Enalapril Maleate [Vasotec] 10 mg PO DAILY 04/29/14 Vitamin D 1 each PO DAILY 04/29/14 Linaclotide [Linzess] 145 mcg PO DAILY PRN 02/22/16 Decision To Admit - Decistion To Admit Decision to Admit Reason: Admit from ER Decision to Admit Date: 08/08/19 Decision to Admit Time: 16:38
[2019-08-08] MEDS ORDERED: PROMETHAZINE HCL INJ 25 MG in SODIUM CHLORIDE 0.9% 50ML 50 ML IVPB ONE ×2 (14:54→14:56)
[2019-08-08] MEDS ORDERED: SODIUM CHLORIDE 0.9% 50ML 50 ML ONE (14:56)
[2019-08-08] MEDS ORDERED: PROMETHAZINE HCL INJ 25 MG/ML VIAL ONE ×2 (14:56→21:28)
--- NOTE | 2019-08-08 15:43 | CT ---
Study: CT abdomen and pelvis. Indication: SBO Technique: Venous phase CT imaging of the abdomen and pelvis obtained after intravenous administration of contrast. This exam was performed according to our departmental dose-optimization program, which includes automated exposure control, adjustment of the mA and/or kV according to patient size and/or use of iterative reconstruction technique. Comparison: August 03, 2019. Findings: Lower chest, liver, gallbladder, pancreas, spleen, adrenal glands, kidneys, bladder unremarkable. Uterus and ovaries are surgically absent or small. The colon is collapsed. Persistent marked dilatation of the stomach and small bowel with air-fluid levels. Small bowel measures up to 3.7 cm in diameter. Findings are consistent with a resolving high grade small bowel obstruction. A transition site is likely present at the distal ileum but difficult to confirm. No pneumatosis. No free fluid. No free air. No pathologically enlarged lymphadenopathy. Bilateral L5 spondylolysis with grade 1 spondylolisthesis. Impression: Persistent high-grade small bowel obstruction. Electronically signed by: Jaime Shaw MD 08/08/2019 3:41 PM ENVIRONMENTAL REMEDIATION SPECIALIST
[2019-08-08] MEDS ORDERED: LIDOCAINE 4% TOPICAL 50 ML BTTL TOP ONE (16:30)
[2019-08-08] MEDS ORDERED: BENZOCAINE 14% W/TETRACAINE 20 GM CAN TOP ONE (16:30)
[2019-08-08] MEDS ORDERED: LIDOCAINE 2 % GEL 5 ML TUBE TOP ONE ×2 (16:38→16:54)
--- NOTE | 2019-08-08 17:19 | HP ---
SUPERVISING PHYSICIAN: James Velazco M.D. CHIEF COMPLAINT: Abdominal pain. HISTORY OF PRESENT ILLNESS: This is a 54 year-old female patient who came to the Emergency Room, who was complaining of abdominal pain. She had just been released from the hospital after a 4 day stay for a partial small bowel obstruction and treated conservatively with an nasogastric tube. After going home she did fairly well, but the night prior to her admission to the hospital she had some bloating in her abdomen, and she did not have any bowel movements. She also had 1 episode of vomiting. There were no fever or chills. She had lots of abdominal cramps with abdominal pain. Vital signs in the Emergency Room showed temperature 98.4, heart rate 81, blood pressure 176/114, respiratory rate 18, O2 sat 98% on room air. Lab studies were done and her CBC was unremarkable. Sodium was slightly low at 134 with chloride 94, lactic acid 1.5, serum osmolality 266.4, calcium 10.3 and AST was 45. The remainder of her liver enzymes were within normal limits. Urine did have 15 urine ketones and a trace of intact urine blood. An nasogastric tube was placed and she was given some IV fluids as well as some Phenergan. Her abdominal CT showed persistent high grade small bowel obstruction. Dr. Hall was consulted. He agreed that she should be put in the hospital and his orders were written and plans to take to surgery, most likely on . I was called for hospital admission. PAST MEDICAL HISTORY: 1. Seasonal allergies. 2. Migraine headaches. 3. Hyperlipidemia. 4. Hypertension. 5. Palpitations. 6. Cervical disc disease. 7. Left breast cancer that has resolved. PAST SURGICAL HISTORY: 1. section. 2. Hysterectomy. 3. Hernia repair in 1970. 4. Left mastectomy. OUTPATIENT MEDICATIONS: 1. Alprazolam. 2. Calcium. 3. Dicyclomine. 4. Enalapril. 5. Linzess. 6. Vitamin D. ALLERGIES: NO KNOWN DRUG ALLERGIES. FAMILY HISTORY: Noncontributory. SOCIAL HISTORY: She is . She has 2 children. She is employed at [employer]. She denies any smoking or illicit drug use. She does drink alcohol on a social basis. REVIEW OF SYSTEMS: GENERAL: Positive for fatigue. Negative for fever or weight changes. HEENT: Negative for sinus symptoms, ear pain, vision changes or sore throat. RESPIRATORY: Negative for wheezing, coughing or shortness of breath. CARDIAC: Negative for chest pain, palpitations or tachycardia. GASTROINTESTINAL: As per History of Present Illness. GENITOURINARY: Negative for hematuria, dysuria or polyuria. MUSCULOSKELETAL: Negative for arthralgias, myalgias. SKIN: Negative for lesions or rashes. NEUROLOGIC: Negative for headache, dizziness or seizures. PHYSICAL EXAMINATION: VITAL SIGNS: Temperature 97.1, heart rate 76, blood pressure 124/80, respiratory rate 16, O2 saturation 95% on room air. GENERAL: This is a 54 year-old female patient who is sitting up in her hospital bed. She looks to be moderately ill. HEENT: Normocephalic and atraumatic. Pupils are equal and reactive. Oropharynx is clear. Oral mucous membranes are very dry. NECK: Supple without mass. RESPIRATORY: Essentially clear to auscultation bilaterally. CHEST: There is equal rise and fall of the chest with inspiration and expiration. CARDIAC: Regular rate and rhythm. GASTROINTESTINAL: Abdomen is soft. It is mildly distended. It is diffusely tender in all four quadrants. Most of her pain is in the epigastric and left upper quadrant. There is no rebound tenderness but there is some mild guarding. Bowel sounds are positive but diminished. EXTREMITIES: No clubbing, cyanosis or edema. SKIN: Warm and dry. NEUROLOGIC: She is awake, alert and oriented times three. Cranial nerves II- XII are grossly intact as tested. LABORATORY: Labs and films are as per history of present illness. ASSESSMENT: 1. Small bowel obstruction. 2. Severe dehydration secondary to nausea and vomiting as well as #1. 3. Hypertension. 4. Chronic cervical neck pain. 5. Hyperlipidemia. 6. History of breast cancer with left mastectomy. PLAN: The patient has been admitted to the hospital. She was given IV fluids. Dr. Hall has written orders that included a proton pump inhibitor for ulcer prophylaxis. She will be NPO on bowel rest. I have ordered Zofran as well as Phenergan for nausea. She will also be on Lovenox for deep venous thrombosis prophylaxis. Pain medications are per Dr. Hall. She will have routine labs as well as an abdominal x-ray in the morning. Will order aggressive pulmonary hygiene. Plan for surgery at the discretion of Dr. Hall. [facility][id number]
[2019-08-08] MEDS ORDERED: PHENOL THROAT SPRAY 180 ML BTTL MT ONE (17:48)
[2019-08-08] MEDS ORDERED: PHENOL THROAT SPRAY 180 ML BTTL MT PRN (17:51)
[2019-08-08] MEDS ORDERED: PANTOPRAZOLE SODIUM IV 40 MG VIAL IV SCH (18:00)
[2019-08-08] MEDS ORDERED: SODIUM CHLORIDE 0.9% (FLUSH) 10 ML SYG IV PRN (18:41)
[2019-08-08] MEDS: KCL 20MEQ/D5 1/2NS 1,000 ML IVS PRN (19:29)
[2019-08-08] MEDS: IV SET AND CAP CHANGE INJ INJ SCH (19:29)
[2019-08-08] MEDS: MORPHINE SULFATE INJ 10 MG/ML VIAL IV PRN (19:45)
[2019-08-08] MEDS ORDERED: SODIUM CHLORIDE 0.9% (FLUSH) 10 ML SYG IV SCH (21:00)
[2019-08-08] MEDS ORDERED: SODIUM CHL 0.9% 50ML MIN-BAG+ 0 ML IVPB ONE (21:28)
[2019-08-08] MEDS: PROMETHAZINE HCL INJ 25 MG in SODIUM CHLORIDE 0.9% 50ML 50 ML IVPB PRN (21:36)
[2019-08-08] MEDS: ENOXAPARIN SODIUM 40 MG/0.4 ML SYG SUBCU SCH (22:05)
[2019-08-09] MEDS: MORPHINE SULFATE INJ 10 MG/ML VIAL IV PRN ×4 (01:52→21:06)
[2019-08-09] MEDS ORDERED: PROMETHAZINE HCL INJ 25 MG/ML VIAL ONE ×3 (02:16→19:32)
[2019-08-09] MEDS ORDERED: SODIUM CHLORIDE 0.9% 50ML 50 ML ONE ×3 (02:17→19:32)
[2019-08-09] MEDS: KCL 20MEQ/D5 1/2NS 1,000 ML IVS PRN ×3 (02:22→20:15)
[2019-08-09] MEDS: PROMETHAZINE HCL INJ 25 MG in SODIUM CHLORIDE 0.9% 50ML 50 ML IVPB PRN ×3 (02:23→21:05)
--- NOTE | 2019-08-09 09:03 | RAD ---
:1965. Sex:Female. TECHNIQUE: Supine and upright views of the abdomen. Comparing CT scan August 08, 2019 CLINICAL HISTORY:fu bowel obstruction. FINDINGS: Nasogastric tube is at the EG junction and can be advanced several centimeters to be in the stomach. Dilated small bowel loops with fluid levels ranging up to 4.5 cm consistent with small bowel obstruction. Moderate gastric dilatation with a fluid level. There is reduced distal colonic gas and no gas is seen in the rectum. Incidental right subphrenic colonic interposition is noted. No other specific evidence for free air. Contrast excretion in the urinary bladder from the preceding CT scan noted. Lung bases are clear. IMPRESSION: 1. NG tube at the EG junction. 2. Small bowel obstruction. Electronically signed by: Shakir Gupta MD 08/09/2019 9:02 AM SELLING UNDERWRITER
--- NOTE | 2019-08-09 15:35 | PN ---
DATE: 08/09/19 SUPERVISING PHYSICIAN: James Velazco M.D. SUBJECTIVE: The patient is sitting up in her bed. She continues to have some cramping in the abdomen but it had improved. I explained to her that the nasogastric tube was not in far enough and that we would have to advance it and she was okay with that. She understands that she will most likely go to surgery tomorrow per Dr. Hall's instructions. She has had no nausea or vomiting. She has had quite a bit put out of her nasogastric tube. OBJECTIVE: VITAL SIGNS: Temperature 97.1, heart rate 76, blood pressure 124/80, respiratory rate 16, O2 saturation 95% on room air. GENERAL: This is a 54 year-old female patient who is sitting up in her hospital bed. She looks to be moderately ill. HEENT: Normocephalic and atraumatic. Pupils are equal and reactive. Oropharynx is clear. Oral mucous membranes are very dry. NECK: Supple without mass. RESPIRATORY: Essentially clear to auscultation bilaterally. CHEST: There is equal rise and fall of the chest with inspiration and expiration. CARDIAC: Regular rate and rhythm. GASTROINTESTINAL: Abdomen is soft. It is mildly distended. It is diffusely tender in all four quadrants. Most of her pain is in the epigastric and left upper quadrant. There is no rebound tenderness but there is some mild guarding. Bowel sounds are positive but diminished. EXTREMITIES: No clubbing, cyanosis or edema. SKIN: Warm and dry. NEUROLOGIC: She is awake, alert and oriented times three. Cranial nerves II- XII are grossly intact as tested. LABORATORY: Sodium 134. The remainder of her electrolytes are within normal limits. CBC is unremarkable. Initial abdominal x-ray shows: 1. Nasogastric tube at the EG junction. 2. Small bowel obstruction. All other labs and films have been reviewed via the EMR. ASSESSMENT: 1. Small bowel obstruction. 2. Dehydration secondary to nausea and vomiting as well as the small bowel obstruction. 3. Hypertension. 4. Chronic cervical neck pain. 5. Hyperlipidemia. 6. History of breast cancer with left mastectomy. PLAN: We will continue present supportive care. Surgical issues will be per Dr. Hall, general surgeon. At this point I believe I may give her an extra 500 mL of saline as she is still quite dehydrated. We have advanced her nasogastric tube about 12 cm. We immediately got about 100 mL gastric contents returned. I have also given her some Ativan for anxiety. Her labs and other orders will be as per Dr. Hall's instructions. Will continue to monitor closely and follow as needed. #[id number] [facility]
[2019-08-09] MEDS: PANTOPRAZOLE SODIUM IV 40 MG VIAL IV SCH (20:55)
[2019-08-09] MEDS: ENOXAPARIN SODIUM 40 MG/0.4 ML SYG SUBCU SCH (21:04)
[2019-08-10] MEDS: MORPHINE SULFATE INJ 10 MG/ML VIAL IV PRN ×4 (03:40→19:44)
[2019-08-10] MEDS: KCL 20MEQ/D5 1/2NS 1,000 ML IVS PRN ×2 (05:27→17:37)
[2019-08-10] MEDS ORDERED: raNITIdine HCL INJ 25 MG/ML VIAL ONE (07:00)
[2019-08-10] MEDS ORDERED: DEXAMETHASONE INJ 10 MG/ML VIAL ONE (07:00)
[2019-08-10] MEDS ORDERED: ceFAZolin SODIUM 1 GM VIAL ONE (07:00)
[2019-08-10] MEDS ORDERED: LIDOCAINE 1% 10 ML VIAL INJ ONE (07:00)
[2019-08-10] MEDS ORDERED: PROPOFOL 200 MG/20 ML VIAL IV ONE (07:00)
[2019-08-10] MEDS ORDERED: MIDAZOLAM INJ 2 MG/2 ML VIAL ONE ×2 (13:18→13:39)
[2019-08-10] MEDS ORDERED: ROCURONIUM BROMIDE 10 MG/ML VIAL ONE (13:18)
[2019-08-10] MEDS ORDERED: fentaNYL CITRATE INJ 50 MCG/ML AMP ONE (13:18)
[2019-08-10] MEDS ORDERED: BUPIVACAINE 0.25% W/EPI 50 ML VIAL INJ ONE ×2 (13:19→13:39)
[2019-08-10] MEDS ORDERED: ELECTROLYTE-A 1,000 ML IVS ONE (13:37)
[2019-08-10] MEDS ORDERED: SUGAMMADEX SODIUM 200 MG/2 ML VIAL IV ONE (14:57)
[2019-08-10] MEDS ORDERED: HYDROcodone 5MG/APAP 325MG 1 EA TAB PO PRN (15:26)
[2019-08-10] MEDS: LABETALOL INJ 5 MG/ML VIAL ONE ×3 (15:32→16:01)
[2019-08-10] MEDS: HYDROmorphone HCL INJ 2 MG/ML VIAL ONE ×4 (15:40→16:08)
[2019-08-10] MEDS ORDERED: LACTATED RINGERS 1,000 ML ONE (16:24)
[2019-08-10] MEDS: ENOXAPARIN SODIUM 40 MG/0.4 ML SYG SUBCU SCH (20:48)
[2019-08-10] MEDS: PANTOPRAZOLE SODIUM IV 40 MG VIAL IV SCH (20:49)
[2019-08-10] MEDS ORDERED: PROMETHAZINE HCL INJ 25 MG/ML VIAL ONE (21:39)
[2019-08-10] MEDS ORDERED: SODIUM CHLORIDE 0.9% 50ML 50 ML ONE (21:39)
[2019-08-10] MEDS: PROMETHAZINE HCL INJ 25 MG in SODIUM CHLORIDE 0.9% 50ML 50 ML IVPB PRN (21:53)
[2019-08-11] MEDS: KCL 20MEQ/D5 1/2NS 1,000 ML IVS PRN ×3 (01:41→18:34)
[2019-08-11] MEDS: MORPHINE SULFATE INJ 10 MG/ML VIAL IV PRN ×5 (03:10→21:57)
--- NOTE | 2019-08-11 09:15 | PN ---
SUPERVISING PHYSICIAN: James Velazco M.D. DATE: 08/10/19 SUBJECTIVE: The patient is being seen postoperatively after her abdominal surgery today performed by Dr. Hall, general surgeon. She had an exploratory laparotomy and lysis of adhesions secondary to a small bowel obstruction. She had no intraoperative complications. She has no complaints postoperatively, no complaints of nausea or vomiting. OBJECTIVE: VITAL SIGNS: Temperature 98.2. Heart rate 76. Blood pressure 129/75. Respiratory rate 16. O2 saturation 92% on room air. RESPIRATORY: Essentially clear to auscultation bilaterally. CARDIAC: Regular rate and rhythm. GASTROINTESTINAL: She has a midline abdominal dressing that is dry and intact. She is diffusely tender. Bowel sounds are hypoactive. NEUROLOGIC: She is awake, alert and oriented times three. LABORATORY: There are no labs or films to report at this time. ASSESSMENT: 1. Small bowel obstruction status post exploratory laparotomy for lysis of adhesions, performed by Dr. Yifan Hall, general surgeon, postoperative day 0. 2. Dehydration secondary to nausea and vomiting, improved. 3. Hypertension. 4. Chronic cervical neck pain. 5. Hyperlipidemia. 6. History of breast cancer with left mastectomy. PLAN: We will continue present supportive care. Operative issues will be per Dr. Hall, general surgeon. I have encouraged good pulmonary hygiene and encouraged her to get up to the chair and follow Dr. Hall's instructions. We discussed her postoperative care. We will continue to monitor closely and follow as needed. [id number] [facility]
[2019-08-11] MEDS ORDERED: PROMETHAZINE HCL INJ 25 MG/ML VIAL ONE ×2 (09:25→21:22)
[2019-08-11] MEDS ORDERED: SODIUM CHLORIDE 0.9% 50ML 50 ML ONE ×2 (09:25→21:23)
[2019-08-11] MEDS: PROMETHAZINE HCL INJ 25 MG in SODIUM CHLORIDE 0.9% 50ML 50 ML IVPB PRN ×2 (09:30→21:27)
--- NOTE | 2019-08-11 09:36 | OP ---
DATE OF PROCEDURE: 08/10/19 PREOPERATIVE DIAGNOSIS: 1. High grade partial small bowel obstruction. POSTOPERATIVE DIAGNOSIS: 1. High grade partial small bowel obstruction. PROCEDURE: 1. Laparoscopy with lysis of adhesions followed by laparotomy and further lysis of adhesions. SURGEON: Yifan Hall MD. SEMICONDUCTOR MANUFACTURING TECHNICIAN: Rony Celaya MD. ANESTHESIA: General endotracheal anesthesia. INDICATION: The patient is a 54-year-old female who was hospitalized last week with what appeared to be a partial small bowel obstruction. She was treated conservatively with nasogastric suction. Her symptoms resolved and she began passing gas and had a large amount of gas in the colon. She was started on a clear liquid diet, which she tolerated well. Her nasogastric tube was removed and her diet was advanced. She tolerated this and was sent home. Within 24 hours, she was back with abdominal distention, nausea, vomiting and crampy abdominal pain. CT scan again revealed bilateral loops of small bowel with what appeared to be a transition point in the right lower quadrant near the terminal ileum. FINDINGS: There was a group of loops of small bowel adhesed to the right pelvic sidewall and then with interloop adhesions causing a discrete narrowing of the bowel secondary to adhesions just proximal to the ileocecal junction. There was no peritoneal studding, signs of masses, her liver appeared to be normal. No other obvious pathology was identified. Approximately 40 mL of straw-colored ascites was aspirated at the beginning of the case. PROCEDURE: After the patient was brought to the Surgical Suite, general endotracheal anesthesia was obtained. She was given IV Ancef. The abdomen was prepped and draped in the usual sterile manner. At this time, a surgical time- out was taken. At this time, a vertical incision was made below the umbilicus, first with local anesthesia and then with a sharp knife. Dissection was carried down through the skin and subcutaneous tissue to the midline fascia. Traction sutures were placed on either side of the midline. A small incision was made in the midline fascia and the peritoneum was opened bluntly. An Vilchis trocar was then introduced under direct vision into the abdominal cavity and fixed in place with a 20 mL balloon. CO2 was insufflated until the pressure of 12 cm of water was obtained. The laparoscope was introduced. The abdomen was inspected with the previously noted findings. Since there initially was a loop of small bowel that was anteriorly adhesed to the right pelvic sidewall, we placed 5 mm ports in the left lower quadrant and suprapubic area and then using sharp dissection, this loop of bowel was dissected free. However, upon dissecting this loop free, we saw that there were many further areas of adhesion deeper in the pelvis, so at this point, we removed the ports and CO2 and a midline incision was made from the suprapubic port site to the infraumbilical port site. The skin was incised and dissection was carried down through the skin and subcutaneous tissue to the fascia using electrocautery. The fascia was scored and the incision was opened for the length of the incision using electrocautery. Retractors were placed. Initially, the suction was used to aspirate the ascites in the pelvis, so at this point, we began the dissection. Eventually, several loose adhesions were lysed and then several loops of small bowel were densely adhesed to one another and to the terminal ileum. These were lysed individually using sharp dissection and electrocautery. When this was done, the area of bowel had adhesed essentially to itself and this was opened up which allowed us to pass a large amount of gas and fluid from the distal small bowel into the colon. There was no sign of leak and the bowel was all pink, so the remaining gas and fluid was milked back into the stomach where it was aspirated by Anesthesia. At this point, hemostasis was noted to be adequate, so the abdomen was irrigated copiously with saline. Hemostasis was noted to be adequate. The small bowel was placed back in the abdomen. The mesentery was placed over the bowel and then a sponge was placed over the mesentery and the fascia was closed with running 0 double strand PDS. It was then tightened and tied in the pelvis. The knot was sutured down with a 3-0 Vicryl [id number] suture. When this was done, again, the subcutaneous tissue was irrigated with saline. The skin edges were approximated with a skin stapler and this includes the left lower quadrant port site. When this was done, sterile dressing was applied. The patient tolerated the procedure well. We will have the Eaton catheter removed in the Recovery Room. We will leave the nasogastric tube intact. Estimated blood loss was less than 50 mL. All sponge, needle and instrument counts were correct. #[id number] [facility]
[2019-08-11] MEDS ORDERED: MAGNESIUM HYDROXIDE 30 ML UD NG ONE (11:12)
[2019-08-11] MEDS: IV SET AND CAP CHANGE INJ INJ SCH (17:13)
[2019-08-11] MEDS: ENOXAPARIN SODIUM 40 MG/0.4 ML SYG SUBCU SCH (20:39)
[2019-08-11] MEDS: PANTOPRAZOLE SODIUM IV 40 MG VIAL IV SCH (20:39)
[2019-08-12] MEDS: MORPHINE SULFATE INJ 10 MG/ML VIAL IV PRN ×3 (02:02→20:26)
[2019-08-12] MEDS ORDERED: PROMETHAZINE HCL INJ 25 MG/ML VIAL ONE ×3 (02:25→20:58)
[2019-08-12] MEDS ORDERED: SODIUM CHLORIDE 0.9% 50ML 50 ML ONE ×3 (02:26→20:58)
[2019-08-12] MEDS: PROMETHAZINE HCL INJ 25 MG in SODIUM CHLORIDE 0.9% 50ML 50 ML IVPB PRN ×3 (02:28→21:03)
--- NOTE | 2019-08-12 10:08 | PN ---
SUPERVISING PHYSICIAN: James Velazco M.D. DATE: 08/11/19 SUBJECTIVE: The patient is postoperative day #1. She has been up ambulating. She has had a little bit of nausea after the NG tube was initially clamped. She has been splinting with a pillow, notes her pain is controlled. She has not had any chest pain or diarrhea. OBJECTIVE: VITAL SIGNS: Temperature 98.5. Heart rate 78. Blood pressure 147/84. Respiratory rate 16. O2 saturation 96% on room air. I&Os show a negative balance of 1616. Weight 41.5 kg. GENERAL: The patient is resting in bed. NG tube is in place. He appears to be in no acute distress. HEENT: Nasogastric tube remains in place without any complications. CHEST: Lung sounds are clear to auscultation. CARDIAC: Regular rate and rhythm. ABDOMEN: Bowel sounds were hypoactive but present. She remains diffusely tender postoperative as expected. Abdominal dressing remains in place, clear and dry. NEUROLOGIC: She is alert and oriented x 3. LABORATORY: Hemoglobin 11.8, hematocrit 35.0, differential shows to be without a left shift. White count within normal limits. Chemistries show normal electrolytes. BUN less than 5. Creatinine 0.58. Blood sugar 115, calcium 8.3. ASSESSMENT: 1. Small bowel obstruction status post exploratory laparotomy for lysis of adhesions, performed by Dr. Yifan Hall, general surgeon, postoperative day #1. 2. Dehydration secondary to #1, improving. . 3. Hypertension, stable. 4. Chronic cervical neck pain. 5. Hyperlipidemia. 6. History of breast cancer with left mastectomy. PLAN: Will continue to refer to Dr. Hall for postoperative management. I believe he is going to camp NG tube today. She is on some ice chips, clear liquids. She is encouraged to ambulate. We will continue to encourage aggressive bronchial hygiene with incentive spirometry. She remains on DVT prophylaxis per protocol. Hopefully, she will progress well and we can discharge over the weekend. Until then, we will continue to defer to Dr. Hall for further treatment and will continue to monitor and treat as needed. [facility][id number] [facility]
[2019-08-12] MEDS: KCL 20MEQ/D5 1/2NS 1,000 ML IVS PRN (10:23)
[2019-08-12] MEDS ORDERED: MAGNESIUM HYDROXIDE 30 ML UD NG ONE (12:05)
--- NOTE | 2019-08-12 16:41 | PN ---
DATE: 08/12/19 SUPERVISING PHYSICIAN: James Velazco M.D. SUBJECTIVE: The patient is doing well. She has been ambulating. She tolerated clear liquids yesterday and this morning. Nasogastric tube has been clamped with minimal drainage. She has not had any chest pains. No diarrhea. No nausea or vomiting. OBJECTIVE: VITAL SIGNS: Temperature 98.5, pulse 68, blood pressure 131/84, respirations 16, satting 97% on room air. I's and O's show drainage from nasogastric tube to be about 100 in the last 24 hours apparently. Weight is 42.6 kg. GENERAL: The patient is resting comfortably. HEENT: Nasogastric tube remains in place without any complications. CHEST: Clear to auscultation. HEART: Regular rate and rhythm. ABDOMEN: Soft, just tender to palpation from surgical incisions. The patient continues to splint as directed. NEUROLOGIC: She is over times three. LABORATORY: No laboratory today. RADIOLOGY: No radiographic studies. ASSESSMENT: 1. Small bowel obstruction status post exploratory laparotomy for lysis of adhesions, performed by Dr. Yifan Hall, general surgeon, postoperative day #2. 2. Dehydration secondary to #1, improving. . 3. Hypertension, stable. 4. Chronic cervical neck pain. 5. Hyperlipidemia. 6. History of breast cancer with left mastectomy. PLAN: Again, will continue to follow Dr. Hall's recommendations postoperatively. Anticipate that she will probably be able to get her nasogastric tube out today and hopefully advance her diet within the next 24 to 48 hours if not today. Until Dr. Hall feels the patient is safe to discharge will continue to monitor and treat as needed. #[id number] [facility]
[2019-08-12] MEDS: PANTOPRAZOLE SODIUM IV 40 MG VIAL IV SCH (20:24)
[2019-08-12] MEDS: ENOXAPARIN SODIUM 40 MG/0.4 ML SYG SUBCU SCH (20:26)
[2019-08-13] MEDS: KCL 20MEQ/D5 1/2NS 1,000 ML IVS PRN (00:14)
[2019-08-13] MEDS: MORPHINE SULFATE INJ 10 MG/ML VIAL IV PRN ×3 (11:44→20:41)
[2019-08-13] MEDS ORDERED: ACETAMINOPHEN W/COD #3 TAB 1 EA TAB PO PRN (12:39)
[2019-08-13] MEDS: POLYETHYLENE GLYCOL 3350 17 GM PCKT PO SCH (13:41)
[2019-08-13] MEDS ORDERED: ENALAPRIL MALEATE 10 MG PO SCH (14:00)
[2019-08-13] MEDS ORDERED: ENALAPRIL MALEATE 5 MG TAB ONE (14:15)
[2019-08-13] MEDS ORDERED: PANTOPRAZOLE SODIUM TAB 40 MG PO ONE (19:05)
[2019-08-13] MEDS: ENOXAPARIN SODIUM 40 MG/0.4 ML SYG SUBCU SCH (20:41)
[2019-08-13] MEDS: SODIUM CHLORIDE 0.9% (FLUSH) 10 ML SYG IV SCH (20:42)
--- NOTE | 2019-08-13 21:21 | PN ---
DATE: 08/12/19 SUPERVISING PHYSICIAN: James Velazco M.D. SUBJECTIVE: The patient is doing well today. She has been advanced to a regular diet. She is ambulating. She says her pain is controlled. She has not had any nausea since the nasogastric tube has been removed. OBJECTIVE: VITAL SIGNS: Stable. Temperature 98.3, pulse 82, blood pressure 145/89, respirations 16, satting 99% on room air. GENERAL: The patient is resting comfortably just having ambulated. She is in no distress. CHEST: Clear to auscultation. HEART: Regular rate and rhythm. ABDOMEN: Soft. Positive bowel sounds with tenderness just to the incision site with no signs of drainage or infectious process. NEUROLOGIC: She is alert and oriented times three. LABORATORY: She did have labs today. Hemoglobin and hematocrit were showing to be stable at 11.4 and 34.0, platelet count 249,000 with white count 3,900 with no left shift. Chemistries show normal electrolytes, creatinine 0.6. ASSESSMENT: 1. Small bowel obstruction status post exploratory laparotomy for lysis of adhesions, performed by Dr. Yifan Hall, general surgeon, postoperative day #3. 2. Dehydration secondary to #1, resolved. 3. Hypertension, started back on Vasotec and stable. 4. Chronic cervical neck pain. 5. Hyperlipidemia. 6. History of breast cancer with left mastectomy. PLAN: I have anticipated discharging tomorrow. After talking with Dr. Hall, she will be advanced to a diet today and as long as she has no complications overnight, she will go home in the morning to followup with Dr. Hall. Until we can transition her to outpatient management will continue to monitor and treat as needed. [id number] [facility]
[2019-08-14] MEDS ORDERED: PANTOPRAZOLE SODIUM TAB 40 MG PO SCH (06:30)
[2019-08-14] MEDS: POLYETHYLENE GLYCOL 3350 17 GM PCKT PO SCH (07:56)
[2019-08-14] MEDS: SODIUM CHLORIDE 0.9% (FLUSH) 10 ML SYG IV SCH (08:40)
[2019-08-14] MEDS ORDERED: ENALAPRIL MALEATE 5 MG TAB PO SCH (09:00)
[2019-08-14 10:20] VITALS: BP 119/72; TEMP 98.8; O2SAT 98
--- NOTE | 2019-08-20 14:54 | DS ---
SUPERVISING PHYSICIAN: James Velazco MD ADMISSION DIAGNOSES: 1. Small bowel obstruction. 2. Severe dehydration secondary to nausea and vomiting as well as #1. 3. Hypertension. 4. Chronic cervical neck pain. 5. Hyperlipidemia. 6. History of breast cancer with left mastectomy. DISCHARGE DIAGNOSES: 1. Small bowel obstruction status post exploratory laparotomy for lysis of adhesions, performed by Dr. Yifan Hall, general surgeon, postoperative day #4. 2. Dehydration secondary to #1, resolved. 3. Hypertension, started back on Vasotec and stable. 4. Chronic cervical neck pain. 5. Hyperlipidemia. 6. History of breast cancer with left mastectomy. REASON FOR HOSPITALIZATION: This is a 54 year-old female patient who came to the Emergency Room complaining of abdominal pain. She had just been released from the hospital after a 4-day stay for a partial small bowel obstruction and treated conservatively with an nasogastric tube. After going home she did fairly well, but the night prior to her admission to the hospital she had some bloating in her abdomen, and she did not have any bowel movements. She also had 1 episode of vomiting. There were no fever or chills. She had lots of abdominal cramps with abdominal pain. Vital signs in the Emergency Room showed temperature 98.4, heart rate 81, blood pressure 176/114, respiratory rate 18, O2 sat 98% on room air. Lab studies were done and her CBC was unremarkable. Sodium was slightly low at 134 with chloride 94, lactic acid 1.5, serum osmolality 266.4, calcium 10.3 and AST was 45. The remainder of her liver enzymes were within normal limits. Urine did have 15 urine ketones and a trace of intact urine blood. An nasogastric tube was placed and she was given some IV fluids as well as some Phenergan. Her abdominal CT showed persistent high grade small bowel obstruction. Dr. Hall was consulted. He agreed that she should be put in the hospital and his orders were written and plans to take to surgery. The patient was admitted in stable condition. CONSULTATION: Yifan Hall MD PROCEDURE: Laparoscopy with lyses of adhesions followed by a laparotomy and further lysis of adhesions performed by Dr. Hall. Please see Dr. Hall's report for details. LABORATORY: Admission hemoglobin and hematocrit were 15.8 and 46.2. at discharge were 11.4 and 34.0. White count was 3,900 at discharge, differential didn't show a shift. Her chemistries were showing to be stable at discharge. Electrolytes were normal. Creatinine was at 0.6. Liver functions were within normal limits except for a slightly elevated, AST at 45. Urinalysis showed 15 of ketones, trace intact blood. MICROBIOLOGY: No specimens. RADIOLOGY: She had an abdominal/pelvic CT prior to admission which showed persistent high grade small bowel obstruction, Preoperatively she had an abdominal x-ray which showed NG tube in place with small bowel obstruction. Postoperatively no additional studies were done. HOSPITAL COURSE: Ms. Li was admitted from the Emergency Room on 08/08/19 for a small bowel obstruction. She was taken to surgery by Dr. Hall on 08/10 and it was found she had a laparoscopy with lysis of adhesions followed by laparotomy and further lysis of adhesions. The patient did well intraoperatively and had no complications postoperatively. Her diet was advanced. She was tolerating a diet. She was ambulating, she was having bowel movements. She was showing to be clinically stable enough to continue with outpatient management. Her vital signs on discharge showed she was afebrile at 98.8 with a pulse of 68, blood pressure 119/73, respirations 16, oxygen saturation 98% on room air. PLAN: Ms. Li was discharged on 08/14/19 with instructions to followup with Dr. Hall on 08/23/19. She was to resume medications as instructed. She was instructed on how splint her incision site help control with pain. She was told to return to the Emergency Room if she had any worsening symptoms. Discharge Diet: Advance diet as tolerated. She was encouraged to chew her food fully before swallowing. Activities: Increase activities as tolerated but no lifting or pulling until she is cleared by Dr. Hall. Medications on Discharge: Miralax 17 grams daily, #20, no refills, to be continued by Dr. Hall. Additional pain management was provided by Dr. Hall per his prescription. All other medications prior to hospitalization were continued. Condition on discharge: Stable and improved. Disposition: The patient was discharged to home. [facility][id number] [facility]
== END 2019-08-14 11:47 | disposition home or self-care (01) | DRG 337 ==
LOC: ER 13:53 → OBSVTOIN 17:18 → MS 17:18
PROVIDERS: ADMIT Nurse Practitioner Acute Care; ATTEND Nurse Practitioner Family
PROC: BW211ZZ Computerized Tomography (CT Scan) of Abdomen and Pelvis using Low Osmolar Contrast (ICD-10-PCS; principal; 2019-08-08)
PROC: 0DN84ZZ Release Small Intestine, Percutaneous Endoscopic Approach (ICD-10-PCS; 2019-08-10)
PROC: 0DN80ZZ Release Small Intestine, Open Approach (ICD-10-PCS; 2019-08-10)
DX: K56.51 Intestinal adhesions [bands], with partial obstruction (principal); E86.0 Dehydration; I10 Essential (primary) hypertension; G89.29 Other chronic pain; M54.2 Cervicalgia; E78.5 Hyperlipidemia, unspecified; J30.2 Other seasonal allergic rhinitis; Z85.3 Personal history of malignant neoplasm of breast; Z79.899 Other long term (current) drug therapy; Z53.31 Laparoscopic surgical procedure converted to open procedure

== ENCOUNTER → 2020-07-15 | Outpatient (CLI) | payer BC, OTHER | LOC: GMAE 14:13 | PROVIDERS: ATTEND Family Medicine | DX: Z00.00 Encounter for general adult medical examination without abnormal findings (principal) ==

== ENCOUNTER → 2020-09-26 | Outpatient (CLI) | payer BC | LOC: GMAE 15:11 | PROVIDERS: ATTEND Family Medicine | DX: U07.1 COVID-19 (principal); R06.02 Shortness of breath ==